=== PATIENT | female | born 1970 | race Caucasian/White ===

== ENCOUNTER 2017-11-10 10:37 | Emergency (ER) | payer MEDICARE ==
[~2017-11-10] VITALS: Ht 154.9 cm; Wt 113.6 kg
[2017-11-10 10:55] VITALS: Ht 154.9 cm; Wt 113.6 kg
[2017-11-10] MEDS ORDERED: ROBAXIN-750750 MG PO (12:45)
[2017-11-10] MEDS ORDERED: COMPAZINE10 MG PO (12:45)
[2017-11-10] MEDS ORDERED: ZPAK PO (12:45)
[2017-11-10 13:30] VITALS: BP 160/68
[2017-12-10 09:08] VITALS: Ht 154.9 cm; Wt 113.6 kg
== END 2017-11-10 13:25 | disposition home or self-care (01) ==
LOC: D.ER 10:37
DX: R11.2 Nausea with vomiting, unspecified (principal); M25.512 Pain in left shoulder; J06.9 Acute upper respiratory infection, unspecified; E11.9 Type 2 diabetes mellitus without complications

== ENCOUNTER 2017-12-09 11:12 | Inpatient (IN) | payer MEDICARE ==
[~2017-12-09] VITALS: Ht 154.9 cm; Wt 150.3 kg
--- NOTE | ~2017-12-09 | HEMODYNAMI ---
PATIENT:YENNI SHERWOOD MEDICAL RECORD: [id number] : 70 LOCATION:[facility] ADMISSION DATE: 12/09/17 Generatedon:12/09/201713:19 Patient name: YENNI SHERWOOD Patient #: [id number] SSN: : 1970 Date of study: 12/09/2017 Page: Of Hemodynamic Procedure Report Patient Data Patient Demographics Procedure consent was obtained First Name: YENNI Gender: Female Last Name: KAELA : 1970 Patient #: [id number] Age: 47 year(s) Race: Unknown Additional ID: [id number] Contact details Address: [address] [address] State: [place] City: [place] Zip code: [address] Admission Admission Data Admission Date: 12/09/2017 Admission Time: 11:12 Procedure Procedure Types Cath Procedure Diagnostic Procedure LHC LHC w/Coronaries Sedation Charges Moderate Sedation up to 15 minutes Procedure Description Procedure Date Procedure Date: 12/09/2017 Procedure Start Time: 12:40 Procedure End Time: 12:59 Procedure Staff Name Function Candido Peña MD Performing Physician Kya Morin RT Monitor Ute Hendrix RT Scrub Mychal Jameson RN Nurse Procedure Data Cath Procedure Fluoroscopy Diagnostic fluoroscopy Total fluoroscopy Time: 2.8 time: 2.8 min min Diagnostic fluoroscopy Total fluoroscopy dose: dose: 1010 mGy 1010 mGy Contrast Material Contrast Material Type Amount (ml) Isovue 300 82 Entry Location Entry Primary Successful Side Size Upsize Upsize Entry Closure Succes sful Closure Location (Fr) 1 (Fr) 2 (Fr) Remarks Device Remarks Femoral Right 5 Fr Exoseal artery Estimated blood loss: 5 ml Diagnostic catheters Device Type Used For End Catheter Placement DIAGNOSTIC AL 1 5Fr Right Coronary catheter ([id number]) Angiography Procedure Complications No complications Procedure Medications Medication Administration Route Dosage 0.9% NaCl I.V. 100 ml/hr Oxygen NC 3 l/min Heparin Flush Bag added to field 2 bags (1000units/500ml NS) Lidocaine 2% added to field 20 Versed I.V. 1 mg Fentanyl I.V. 50 mcg Hydralizine I.V. 20 mg Nitroglycerin IC/IA I.A. 600 mcg Lopressor I.V. 5 mg Fentanyl I.V. 50 mcg Hemodynamics Rest Heart Rate: 63 (bpm) Pressure Samples Time Site Value (mmHg) Purpose Heart Use Rate(bpm) 12:51 LV 230/-9,27 EDP 69 12:52 AO 212/75(128) Pullback 71 12:52 LV 211/20,54 Pullback 71 Gradients Valve Time Site 1 Site 2 Mean SEP/DFP Peak To Heart Use (mmHg) (sec/min) Peak Rate (mmHg) (bpm) Aortic 12:52 LV AO 0 71 211/20,54 212/75(128) Calculations Valve P-P Mean Valve Index Valve Source Name Gradient Area Flow (cm2) Aortic 0 0 Snapshots Pre Cath Intra NCS Post Cath Vital Signs Time Heart Resp SPO2 etCO2 NIBP (mmHg) Rhythm Pain Sedation Rate (ipm) (%) (mmHg) Status Level (bpm) 12:34:40 68 17 97 0 221/98(168) NSR 8 (11) , 10(A) Utterly horrible 12:39:13 65 5 92 0 220/96(168) NSR 7 (11) , 10(A) Very intense 12:43:45 63 30 94 0 225/113(176) NSR 7 (11) , 10(A) Very intense 12:48:20 64 20 96 0 223/100(168) NSR 6 (11) , 10(A) Intense 12:52:54 70 27 96 0 203/95(165) NSR 8 (11) , 10(A) Utterly horrible 12:57:22 79 20 95 0 200/94(142) NSR 7 (11) , 10(A) Very intense 13:05:18 69 21 95 0 195/93(156) NSR 0 (11) , 10(A) No pain 13:10:17 66 13 99 0 Measuring NSR 0 (11) , 10(A) No pain 13:11:41 67 22 96 0 Time NSR 0 (11) , 10(A) Exceeded No pain 13:15:40 0 No Cuff NSR 0 (11) , 10(A) No pain Medications Time Medication Route Dose Verified Delivered Reason Notes Ef fectiveness by by 12:34:08 0.9% NaCl I.V. 100 Mychal Mychal Per ml/hr Gisell Jameson physician RN RN 12:34:19 Oxygen NC 3 Mychal Mychal Per l/min Gisell Jameson physician RN RN 12:34:29 Heparin Flush added 2 Mychal Mychal used for Bag to bags Lorigan Gisell procedure (1000units/500ml field RN RN NS) 12:34:45 Lidocaine 2% added 20ml Mychal Mychal for local to vial Lorigan Lorigan anesthetic field RN RN 12:40:26 Versed I.V. 1 mg Mychal Mychal for sedation Gisell Jameson RN RN 12:40:36 Fentanyl I.V. 50 Mychal Mychal for sedation mcg Gisell Jameson RN RN 12:50:16 Hydralizine I.V. 20 mg Mychal Mychal for Lorigan Lorigan hypertension RN RN 12:54:31 Nitroglycerin I.A. 600 Mychal Candido for IC/IA mcg Gisell Peña MD hypertension RN 12:58:25 Lopressor I.V. 5 mg Mychal Mychal for Lorigan Lorigan hypertension RN RN 13:02:45 Fentanyl I.V. 50 Mychal Mychal for back mcg Feliciaigan Gisell pain RN lens edge grinder machine Log Time Note 12:09:37 Diagnostic Cath Status : Elective 12:10:02 Ute Hendrix RT(R) sent for patient. Start room use. 12:10:03 Time tracking: Regular hours (M-F 7:00 - 5:00) 12:10:07 Plan of Care:Hemodynamics will remain stable., Cardiac rhythm will remain stable., Comfort level will be maintained., Respiratory function will remain adequate., Patient/ family verbilizes understanding of procedure., Procedure tolerated without complication., Recovers from procedure without complications.. 12:32:26 Vital chart was started 12:34:08 0.9% NaCl 100 ml/hr I.V. was administered by Mychal Jameson RN; Per physician; 12:34:19 Oxygen 3 l/min NC was administered by Mychal Jameson RN; Per physician; 12:34:29 Heparin Flush Bag (1000units/500ml NS) 2 bags added to field was administered by Mychal Jameson RN; used for procedure; 12:34:45 Lidocaine 2% 20ml vial added to field was administered by Mychal Jameson RN; for local anesthetic; 12:35:36 Patient received from ED to CCL 2 Alert and oriented. Tansferred to table in Supine position. 12:35:36 Warm blankets applied, and mary alice hugger turned on for patient comfort. 12:35:37 Correct patient and procedure confirmed by team. 12:35:38 Signed procedure consent form obtained from patient. 12:35:39 ECG and BP/O2 sat monitors applied to patient. 12:35:40 Baseline sample Acquired. 12:35:44 Rhythm: sinus rhythm 12:35:45 Full Disclosure recording started 12:35:54 H&P Date Dictated: 12/09/2017 New H&P dictated by physician.. 12:36:58 Pre-procedure instructions explained to patient. 12:36:58 Pre-op teaching completed and patient verbalized understanding. 12:37:01 Family unavailable. 12:37:03 Patient NPO since Breakfast. 12:37:05 Is the patient allergic to Iodine/contrast media? No. 12:37:06 Was the patient premedicated? No 12:37:08 Is patient on blood thinner?No 12:37:10 Patient diabetic? Yes. 12:37:12 If diabetic: On Metformin? Unknown 12:37:15 Previous problem with sedation/anesthesia? No ? 12:37:19 Snore? Yes 12:37:20 Sleep apnea? Yes 12:37:21 Deviated septum? No 12:37:22 Opens mouth fully? Yes 12:37:22 Sticks out tongue? Yes 12:37:25 Airway obstruction? No ? 12:37:28 Dentures? No ? 12:37:30 Pre procedure: right dorsailis pedis pulse 2+ Normal; easily identifiable; not easily obliterated 12:37:32 Pre procedure: left dorsailis pedis pulse 2+ Normal; easily identifiable; not easily obliterated 12:37:36 Patient pain scale 0/10 ?. 12:37:41 IV patent on arrival in left antecubital with [facility]. 12:37:43 Lab results completed and on chart. 12:37:49 Right groin area was prepped with chlora-prep and draped in sterile fashion 12:37:50 Alarms reviewed by R. N. 12:37:50 Sharps counted by scrub and verified by R.N. 12:37:52 Physician arrived 12:37:52 --------ALL STOP TIME OUT------ 12:37:53 Final Timeout: patient, procedure, and site verified with staff and physician. All members of the team are in agreement. 12:37:54 Right groin site verified by team. 12:37:59 Physical assessment completed. ASA score P 2 - A patient with mild systemic disease as per Candido Peña MD. 12:38:03 Sedation plan: IV Moderate Sedation Medication:Versed, Fentanyl 12:38:07 Use device set Radial Dx or PCI 12:38:08 ACIST Syringe (77570) opened to sterile field. 12:38:08 Medline Cath Pack ([id number]) opened to sterile field. 12:38:09 Bag Decanter (2002S) opened to sterile field. 12:38:09 DIAGNOSTIC WIRE .035 260cm J wire (280205) opened to sterile field. 12:38:10 ACIST Hand Control (26707) opened to sterile field. 12:38:10 ACIST Manifold (25923) opened to sterile field. 12:38:21 Tegaderm 4 x 4 (1626W) opened to sterile field. 12:38:56 Procedure started. 12:39:22 SHEATH Prelude 5Fr 0.035 (FOY-7R-97-035) opened to sterile field. 12:40:08 DIAGNOSTIC Multipack 5Fr catheter set ([id number]) opened to sterile field. 12:40:26 Versed 1 mg I.V. was administered by Mychal Jameson RN; for sedation; 12:40:36 Fentanyl 50 mcg I.V. was administered by Mychal Jameson RN; for sedation; 12:40:36 Local anesthetic to right femoral artery with Lidocaine 2% by Candido Peña MD.INITIAL ACCESS ONLY 12:40:44 A 5 Fr sheath was inserted into the Right Femoral artery 12:41:09 5 Fr jl4 guide catheter was inserted over the wire 12:42:12 LCA angiography performed. 12:42:15 Injector settings: Ml/sec: 3, Volume: 6, 12:42:25 Catheter removed. 12:42:37 5 Fr 3drc guide catheter was inserted over the wire 12:43:37 RCA angiography performed. 12:43:40 Injector settings: Ml/sec: 3, Volume: 6, 12:46:18 Bilateral renal angiography performed. 12:47:04 Catheter removed. 12:47:13 A DIAGNOSTIC AL 1 5Fr catheter ([id number]) was advanced over the wire and used for Right Coronary Angiography. 12:48:14 RCA angiography performed. 12:48:16 Injector settings: Ml/sec: 3, Volume: 6, 12:49:49 Catheter removed. 12:50:09 5 Fr pigtail guide catheter was inserted over the wire 12:50:16 Hydralizine 20 mg I.V. was administered by Mychal Jameson RN; for hypertension; 12:51:25 LV hemodynamics recorded. 12:51:27 LV gram done using GREEN 12:51:31 Injector settings: Ml/sec: 12, Volume: 8, 12:52:07 EF : 60 % 12:52:13 Catheter removed. 12:52:52 EXOSEAL 5Fr (EX500) opened to sterile field. 12:54:31 Nitroglycerin IC/IA 600 mcg I.A. was administered by Candido Peña MD; for hypertension; 12:55:51 Sheath removed intact; hemostasis achieved with Exoseal to the Right Femoral artery. 12:56:30 Procedure ended.(Physican Out) 12:57:24 Fluoroscopy time 02.80 minutes. 12:57:44 Fluoroscopy dose: 1010 mGy 12:57:44 Flurop Dose total: 1010 12:57:47 Contrast amount:Isovue 300 82ml. 12:57:48 Sharps counted by scrub and verified by R.N. 12:57:50 Insertion/operative site no bleeding no hematoma. 12:57:52 Post-op/insertion site Right Femoral artery dressed using a 4 x 4 and Tegaderm. 12:57:55 Post right femoral artery:stable 12:57:57 Post Procedure Pulses reassessed and unchanged 12:58:00 Post procedure rhythm: unchanged. 12:58:03 Estimated blood loss: 5 ml 12:58:06 Post procedure instruction explained to patient.Patient verbalizes understanding. 12:58:07 Patient needs reinforcement of post procedure teaching. 12:58:21 Procedure type changed to Cath procedure, Diagnostic procedure, LHC, LHC w/Coronaries, Sedation Charges, Moderate Sedation up to 15 minutes 12:58:22 Procedure and supply charges have been captured, reviewed, submitted and are correct. 12:58:25 Lopressor 5 mg I.V. was administered by Mychal Jameson RN; for hypertension; 12:58:27 Procedure Complication : No complications 12:58:29 Vital chart was stopped 12:58:30 See physician's report for complete and final results. 12:59:34 Report given to Pre/Post Procedure Room. 12:59:37 Patient transfered to Pre/Post Procedure Room with Stretcher. 12:59:41 Procedure ended. 12:59:41 Full Disclosure recording stopped 12:59:52 End room use (Document Last) 13:02:45 Fentanyl 50 mcg I.V. was administered by Mychal Jameson RN; for back pain; 13:04:04 Vital chart was started 13:19:42 Vital chart was stopped Device Usage Item Name Manufacture Quantity Catalog Number Hospital Part Current M inimal Lot# / Charge Number Stock Stock Serial# Code ACIST Syringe Acist 1 76919 185936 865016 410808 2 0 (00252) [employer] Medline Cath Cardinal 1 [id number] 108935 64579 616521 5 Pack Health ([id number]) Bag Decanter Microtek 1 2001S 481073 08686 216033 5 () Medical Inc. DIAGNOSTIC WIRE [place] 1 305575 070048 493067 364156 3 0 .035 260cm J wire (403605) ACIST Hand Acist 1 70408 443480 615816 748709 5 Control (25054) [employer] Inc ACIST Manifold Acist 1 32347 217417 795743 797223 5 (64639) Medical Systems Inc Tegaderm 4 x 4 3M 1 1626W 137120 024767 192976 5 (1626W) SHEATH Prelude Merit 1 QVD-3X-48-035 941787 092531 892795 5 5Fr 0.035 Medical (SFT-2S-22-035) DIAGNOSTIC Cardinal 1 [id number] 629436 34949 415147 3 0 Multipack 5Fr Health catheter set (CG9501) DIAGNOSTIC AL 1 Cardinal 1 [id number] 107771 241848 422022 1 5 5Fr catheter Health (980691S) EXOSEAL 5Fr Cardinal 1 EX500 499355 017526 527142 1 0 (EX500) Health Signature Audit Myrtle Stage Time Signature Unsigned Intra-Procedure 12/09/2017 Kya Morin 1:19:38 PM RT(R) Signatures Monitor : Kya Morin RT Signature : Date : Time : [address] [address]
--- NOTE | ~2017-12-09 | OP ---
PATIENT NAME: YENNI SHERWOOD MEDICAL RECORD: [id number] :70 LOCATION:[facility] ADMISSION DATE:12/09/17 SURGEON: CANDIDO HAMILTON MD DATE OF OPERATION: 12/09/2017 PROCEDURE: Left heart catheterization, LV gram, coronary angiogram. GROCERY DELIVERER: Candido Hamilton MD DESCRIPTION OF PROCEDURE: The patient was brought to cardiac catheterization lab in stable condition. Both groins were sterilely prepped and draped. The patient had a 6-Palauan sheath placed in the right common femoral artery using modified Seldinger technique in a retrograde fashion. We then took catheters and selectively intubated the left coronary artery, the right coronary artery, and the bilateral renal arteries and the left ventricular cavity for complete left heart catheterization. FINDINGS: 1. Left main is a short vessel, widely patent. 2. The LAD is a smallish vessel with a mid 40-50% stenoses, has a mid myocardial bridge. 3. The circumflex is a nondominant vessel with mild diffuse plaquing. 4. The ramus intermediate branch is a small vessel, but widely patent. 5. Right coronary artery comes off in the anterior position, does not appear to be in a binder pinch with the pulmonary artery. There is mild diffuse plaquing in the right coronary artery. 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 6. The bilateral renal arteries were selectively engaged and shown to have no significant stenoses. HEMODYNAMICS: 1. Left ventricular end-diastolic pressure was moderately elevated at 25-30 mmHg. 2. The left ventricular function was normal at 55%. 3. There is no significant mitral regurgitation. No gradient across the aortic valve. IMPRESSION: The patient has mild diffuse coronary artery disease. 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 She does have evidence of congestive left heart failure with elevated left ventricular end-diastolic pressures and had significant elevations of blood pressures upon heart catheterizations into the 200s. We will admit her for hypertensive emergency with chest pain and diuresis and blood pressure control. We will consult her primary providers to help with the diabetic control. TRANSINT:[id number] Voice Confirmation ID: [id number] DOCUMENT ID: [id number] OPERATIVE REPORT [id number] YENNI SHERWOOD,CANDIDO Means MD at 0849 CC: [id number] DICTATION DATE: 12/09/17 1302 BOTTOM PRECIPITATOR OPERATOR: 12/09/17 1330 ADM IN [facility] [address] [id number]
--- NOTE | ~2017-12-09 | CN ---
PATIENT NAME:YENNI VELEZ MEDICAL RECORD: [id number] : 70 LOCATION:[facility] ADMIT DATE: 12/09/17 ACCOUNT: [id number] CONSULTING PHYSICIAN: SADI GUY DO REFERRING PHYSICIAN: ISA HAMILTON MD DATE OF CONSULTATION: 12/10/2017 HISTORY OF PRESENT ILLNESS: Ms. Velez is a 47-year-old white female patient of mine that I follow in [place]. She presents to the Emergency Room with recent chest pain, which is pretty severe. She has risk factors including obesity, hirsutism, diabetes. She was initially admitted by Dr. Hamilton and cardiac catheterization was performed, which reveals no significant coronary artery disease, felt that she probably had some hypertensive urgency that threw her into failure. She was recently hospitalized at [facility] for psych issues. She and her 15-year-old autistic son were found [place] the roadside at around [place] and they were subsequently taken to the Emergency Room. She was subsequently admitted to the psych unit there and autistic son was placed into foster care. Since her release, she has apparently been staying in some motels. Her recently left her and she states he took her CPAP. Essentially she is homeless at this time. PAST MEDICAL HISTORY: Significant for diabetes, bipolar disease, hypertension, anxiety and depression, chronic back pain, hirsutism. ALLERGIES: PENICILLIN. HOME MEDICATIONS: Include pioglitazone 15 mg a day, glipizide 5 mg daily, metformin 1000 b.i.d. and atenolol 50 mg b.i.d. She was recently in a psych unit at [facility]. No psych medicines are mentioned. We will get old records from there. FAMILY HISTORY: Significant for diabetes. SOCIAL HISTORY: The patient is recently from her . Her 15-year-old autistic son is in foster care. She does not smoke. She does not drink. REVIEW OF SYSTEMS: Certain amount of anxiety and depression over her current home situation. She feels bad because she cannot help take care of everybody else. She is complaining of some low back and neck pain with weakness in her lower extremities. She states that she fell about a month ago and hit her head. Her chest pain is better today. She has had some edema. She denies any nausea or vomiting at this time. PHYSICAL EXAMINATION: GENERAL: She is obese. Hirsutism is noted. HEENT: Sclerae nonicteric. NECK: Soft and supple. HEART: Regular. LUNGS: Clear. ABDOMEN: Soft, no rebound, no guarding, no mass. Gait is not assessed. IMPRESSION: 1. Chest pain with normal coronary arteries. 2. Hypertensive urgency with low level CHF, now improved. CONSULT REPORT [id number] YENNI VELEZ 3. Diabetes. 4. Bipolar disease. 5. Recent psych admission at [facility]. PLAN: Appreciate Dr. Hamilton's help. We will get social work coordinator on to try to figure out what we can do for discharge site for her. She would like to go to the [facility] in [place]. Her older sister resides there. She also needs to get a CPAP machine. We will x-ray her neck and back, review her hemoglobin A1c. We will get records from [facility] and double check on her discharge meds regarding any possible psych meds. TRANSINT:[id number] Voice Confirmation ID: [id number] DOCUMENT ID: [id number] SADI GUY DO at 1708 CC: [id number] DICTATION DATE: 12/10/17 1135 METER AND REGULATOR SHOP SUPERVISOR: 12/10/17 1147 ADM IN [address] [place] [id number] [place] [address]
[~2017-12-09 11:12] MED LIST: COMPAZINE10 MG PO; ROBAXIN-750750 MG PO; ZPAK PO
[2017-12-09] MEDS ORDERED: PIOGLITAZONE15 MG PO (11:28)
[2017-12-09] MEDS ORDERED: GLUCOPHAGE1000 MG PO (11:29)
[2017-12-09] MEDS ORDERED: GLUCOTROL 5 MG T5 MG PO (11:29)
[2017-12-09] MEDS ORDERED: TENORMIN50 MG PO (11:30)
[2017-12-09 12:11] LABS: BASOPHILS 0.4 % (0-2); EOSINOPHILS 1.2 % (0-7); HEMATOCRIT 41.4 % (36.0-48.0); HEMOGLOBIN 14.2 g/dL (12-16); IMMATURE GRANULOCYTES 0.3 % (0-5); LYMPHOCYTES 18.7 % (15-50); MCH 31.1 pg (26.0-34.0); MCHC 34.3 g/dL (31.0-37.0); MCV 90.6 fL (80.0-100.0); MONOCYTES 5.3 % (2-11); NEUTROPHILS 74.1 % (40-80); PLATELET COUNT 243 10x3/uL (130-400); RBC 4.57 10x6/uL (4.00-5.40); RDW 13.1 % (11.5-14.5); WBC 7.3 10x3/uL (4.8-10.8)
[2017-12-09 12:34] LABS: ALBUMIN 3.3 g/dL (3.4-5.0); ALKALINE PHOSPHATASE 100 U/L (46-116); ALT (SGPT) 32 U/L (10-68); BILIRUBIN - TOTAL 0.46 mg/dL (0.2-1.3); CALC OSMOLALITY 286 mosm/kg (275-300); CALCIUM 8.9 mg/dL (8.5-10.1); CARBON DIOXIDE 27.2 mmol/L (21.0-32.0); CHLORIDE - SERUM 102 mmol/L (98-107); CREATININE - SERUM 0.9 mg/dL (0.6-1.3); GLUCOSE 223 mg/dL (74-106); POTASSIUM - SERUM 3.4 mmol/L (3.5-5.1); PROTEIN - SERUM 7.3 g/dL (6.4-8.2); SODIUM 140 mmol/L (136-145); UREA NITROGEN 14 mg/dL (7-18); eGFR NON AFRICAN AMERICAN 71 mL/min (90-120)
[2017-12-09 12:46] LABS: CKMB 0.3 U/L (0.0-3.6); CREATINE KINASE 34 UL (21-215)
[2017-12-09 12:47] LABS: TROPONIN-I < 0.017 ng/mL (0.000-0.060)
[2017-12-09 16:29] VITALS: BP 125/77
[2017-12-09 19:00] VITALS: BP 150/62
[2017-12-09 20:00] VITALS: BP 181/72
[2017-12-09 21:00] VITALS: BP 137/73
[2017-12-09 22:00] VITALS: BP 154/73
[2017-12-09 23:00] VITALS: BP 140/66
[2017-12-10] VITALS (15 sets, daily range): BP systolic 100–141; BP diastolic 44–76; Ht 154.9 cm; Wt 150.3 kg
[2017-12-10 02:40] LABS: BASOPHILS 0.5 % (0-2); EOSINOPHILS 1.1 % (0-7); HEMATOCRIT 41.8 % (36.0-48.0); IMMATURE GRANULOCYTES 0.1 % (0-5); MCH 30.8 pg (26.0-34.0); MCHC 33.5 g/dL (31.0-37.0); MCV 91.9 fL (80.0-100.0); MEAN PLATELET VOLUME 11.1 fL (7.4-10.4); MONOCYTES 6.4 % (2-11); NEUTROPHILS 72.9 % (40-80); PLATELET COUNT 246 10x3/uL (130-400); RBC 4.55 10x6/uL (4.00-5.40); RDW 13.5 % (11.5-14.5)
[2017-12-10 02:46] LABS: WBC 9.7 10x3/uL (4.8-10.8)
[2017-12-10 02:51] LABS: ANION GAP 14.8 mmol/L (8-16); CALCIUM 8.5 mg/dL (8.5-10.1); CARBON DIOXIDE 26.8 mmol/L (21.0-32.0); CHOL - HDL RATIO 5.9 ratio (2.3-4.1); CREATININE - SERUM 1.1 mg/dL (0.6-1.3); LDL-HDL RATIO 3.4 ratio (1.5-3.5); POTASSIUM - SERUM 3.6 mmol/L (3.5-5.1)
[2017-12-11] VITALS (11 sets, daily range): BP systolic 97–152; BP diastolic 41–75
[2017-12-12 03:00] VITALS: BP 111/48
[2017-12-12 11:00] VITALS: BP 112/69
[2017-12-12 15:00] VITALS: BP 114/51
[2017-12-12 19:00] VITALS: BP 122/58
[2017-12-12 23:00] VITALS: BP 114/45
[2017-12-13 03:00] VITALS: BP 94/49
[2017-12-13 07:30] VITALS: BP 93/50
[2017-12-13 11:45] VITALS: BP 99/62
[2017-12-13 15:14] VITALS: BP 106/58
[2017-12-13 21:04] VITALS: BP 124/48
[2017-12-14 04:25] VITALS: BP 131/72
[2017-12-14 08:08] VITALS: BP 120/79
[2017-12-14 11:45] VITALS: BP 123/52
[2017-12-14 12:02] LABS: BASOPHILS 0.6 % (0-2); EOSINOPHILS 2.7 % (0-7); HEMATOCRIT 38.5 % (36.0-48.0); HEMOGLOBIN 12.6 g/dL (12-16); IMMATURE GRANULOCYTES 0.1 % (0-5); LYMPHOCYTES 18.7 % (15-50); MCH 30.7 pg (26.0-34.0); MCHC 32.7 g/dL (31.0-37.0); MCV 93.7 fL (80.0-100.0); MEAN PLATELET VOLUME 11.5 fL (7.4-10.4); MONOCYTES 7.7 % (2-11); NEUTROPHILS 70.2 % (40-80); PLATELET COUNT 200 10x3/uL (130-400); RBC 4.11 10x6/uL (4.00-5.40); RDW 13.6 % (11.5-14.5)
[2017-12-14 12:23] LABS: CALCIUM 8.7 mg/dL (8.5-10.1); CREATININE - SERUM 1.1 mg/dL (0.6-1.3)
[2017-12-14 16:18] VITALS: BP 102/72
[2017-12-14 22:10] VITALS: BP 119/39
[2017-12-15 05:33] LABS: BASOPHILS 0.3 % (0-2); EOSINOPHILS 2.9 % (0-7); HEMOGLOBIN 12.2 g/dL (12-16); IMMATURE GRANULOCYTES 0.1 % (0-5); LYMPHOCYTES 32.7 % (15-50); MCH 30.3 pg (26.0-34.0); MCHC 32.1 g/dL (31.0-37.0); MCV 94.5 fL (80.0-100.0); MEAN PLATELET VOLUME 12.1 fL (7.4-10.4); PLATELET COUNT 198 10x3/uL (130-400); RBC 4.02 10x6/uL (4.00-5.40); RDW 13.6 % (11.5-14.5); WBC 6.8 10x3/uL (4.8-10.8)
[2017-12-15 05:46] VITALS: BP 122/45
[2017-12-15 05:51] LABS: ANION GAP 12.4 mmol/L (8-16); CALCIUM 8.6 mg/dL (8.5-10.1); CREATININE - SERUM 1.1 mg/dL (0.6-1.3); POTASSIUM - SERUM 4.4 mmol/L (3.5-5.1)
[2017-12-15 08:51] VITALS: BP 118/56
[2017-12-15 12:45] VITALS: BP 108/69
[2017-12-15 16:48] VITALS: BP 132/55
[2017-12-15 22:57] VITALS: BP 110/56
[2017-12-16 05:37] LABS: BASOPHILS 0.6 % (0-2); EOSINOPHILS 2.5 % (0-7); HEMATOCRIT 37.2 % (36.0-48.0); HEMOGLOBIN 12.1 g/dL (12-16); IMMATURE GRANULOCYTES 0.1 % (0-5); LYMPHOCYTES 30.2 % (15-50); MCH 30.5 pg (26.0-34.0); MCHC 32.5 g/dL (31.0-37.0); MCV 93.7 fL (80.0-100.0); MEAN PLATELET VOLUME 11.9 fL (7.4-10.4); MONOCYTES 7.5 % (2-11); NEUTROPHILS 59.1 % (40-80); PLATELET COUNT 194 10x3/uL (130-400); RBC 3.97 10x6/uL (4.00-5.40); RDW 13.5 % (11.5-14.5); WBC 6.9 10x3/uL (4.8-10.8)
[2017-12-16 05:41] VITALS: BP 102/51
[2017-12-16 06:23] LABS: ANION GAP 10.1 mmol/L (8-16); CALCIUM 8.2 mg/dL (8.5-10.1); CARBON DIOXIDE 30.9 mmol/L (21.0-32.0)
[2017-12-16 10:48] VITALS: BP 125/54
[2017-12-16 13:31] VITALS: BP 132/59
[2017-12-16 16:48] VITALS: BP 142/57
[2017-12-16 20:00] VITALS: BP 131/49
[2017-12-17] VITALS: BP 137/55
[2017-12-17 04:00] VITALS: BP 120/61
[2017-12-17 05:54] LABS: ANION GAP 9.6 mmol/L (8-16); CALCIUM 8.7 mg/dL (8.5-10.1); CARBON DIOXIDE 30.7 mmol/L (21.0-32.0)
[2017-12-17 06:08] LABS: POTASSIUM - SERUM 4.3 mmol/L (3.5-5.1)
[2017-12-17 06:20] LABS: BASOPHILS 0.3 % (0-2); EOSINOPHILS 2.1 % (0-7); HEMATOCRIT 37.6 % (36.0-48.0); HEMOGLOBIN 12.2 g/dL (12-16); IMMATURE GRANULOCYTES 0.3 % (0-5); LYMPHOCYTES 31.7 % (15-50); MCH 30.4 pg (26.0-34.0); MCHC 32.4 g/dL (31.0-37.0); MCV 93.8 fL (80.0-100.0); MEAN PLATELET VOLUME 12.4 fL (7.4-10.4); MONOCYTES 6.9 % (2-11); NEUTROPHILS 58.7 % (40-80); PLATELET COUNT 213 10x3/uL (130-400); RBC 4.01 10x6/uL (4.00-5.40); RDW 13.5 % (11.5-14.5); WBC 7.7 10x3/uL (4.8-10.8)
[2017-12-17 08:48] VITALS: BP 140/55
[2017-12-17 12:46] VITALS: BP 137/77
[2017-12-17 16:49] VITALS: BP 118/89
[2017-12-17 20:00] VITALS: BP 111/71
[2017-12-18 04:00] VITALS: BP 123/79
[2017-12-18 05:50] LABS: BASOPHILS 0.4 % (0-2); EOSINOPHILS 2.2 % (0-7); HEMATOCRIT 37.7 % (36.0-48.0); HEMOGLOBIN 12.1 g/dL (12-16); IMMATURE GRANULOCYTES 0.1 % (0-5); MCH 30.3 pg (26.0-34.0); MCHC 32.1 g/dL (31.0-37.0); MCV 94.3 fL (80.0-100.0); MEAN PLATELET VOLUME 11.9 fL (7.4-10.4); MONOCYTES 7.7 % (2-11); NEUTROPHILS 62.6 % (40-80); PLATELET COUNT 201 10x3/uL (130-400); RDW 13.3 % (11.5-14.5); WBC 7.9 10x3/uL (4.8-10.8)
[2017-12-18 06:32] LABS: ANION GAP 11.9 mmol/L (8-16); CALCIUM 8.8 mg/dL (8.5-10.1); CARBON DIOXIDE 28.9 mmol/L (21.0-32.0); POTASSIUM - SERUM 3.8 mmol/L (3.5-5.1)
[2017-12-18 09:11] VITALS: BP 131/66
[2017-12-18 15:35] VITALS: BP 128/50
[2017-12-18 20:30] VITALS: BP 140/70
[2017-12-19 00:30] VITALS: BP 121/58
[2017-12-19 04:00] VITALS: BP 149/76
[2017-12-19 05:41] LABS: BASOPHILS 0.4 % (0-2); EOSINOPHILS 1.9 % (0-7); HEMATOCRIT 37.3 % (36.0-48.0); HEMOGLOBIN 12.1 g/dL (12-16); IMMATURE GRANULOCYTES 0.1 % (0-5); LYMPHOCYTES 30.6 % (15-50); MCH 30.4 pg (26.0-34.0); MCHC 32.4 g/dL (31.0-37.0); MCV 93.7 fL (80.0-100.0); MONOCYTES 5.6 % (2-11); NEUTROPHILS 61.4 % (40-80); PLATELET COUNT 206 10x3/uL (130-400); RBC 3.98 10x6/uL (4.00-5.40); RDW 13.4 % (11.5-14.5); WBC 8.2 10x3/uL (4.8-10.8)
[2017-12-19 06:11] LABS: ANION GAP 11.8 mmol/L (8-16); CALCIUM 8.7 mg/dL (8.5-10.1); CARBON DIOXIDE 30.1 mmol/L (21.0-32.0); POTASSIUM - SERUM 3.9 mmol/L (3.5-5.1)
[2017-12-19 09:07] VITALS: BP 150/60
[2017-12-19 15:26] VITALS: BP 119/50
[2017-12-19 19:53] VITALS: BP 145/75
[2017-12-20 04:00] VITALS: BP 116/41
[2017-12-20 08:17] VITALS: BP 150/59
[2017-12-20 09:57] LABS: BASOPHILS 0.2 % (0-2); EOSINOPHILS 2.3 % (0-7); HEMATOCRIT 38.8 % (36.0-48.0); HEMOGLOBIN 12.7 g/dL (12-16); IMMATURE GRANULOCYTES 0.1 % (0-5); LYMPHOCYTES 21.9 % (15-50); MCH 30.7 pg (26.0-34.0); MCHC 32.7 g/dL (31.0-37.0); MCV 93.7 fL (80.0-100.0); MEAN PLATELET VOLUME 12.1 fL (7.4-10.4); MONOCYTES 5.3 % (2-11); NEUTROPHILS 70.2 % (40-80); PLATELET COUNT 233 10x3/uL (130-400); RBC 4.14 10x6/uL (4.00-5.40); RDW 13.5 % (11.5-14.5); WBC 8.2 10x3/uL (4.8-10.8)
[2017-12-20 10:21] LABS: ALBUMIN 2.9 g/dL (3.4-5.0); ANION GAP 11.1 mmol/L (8-16); BILIRUBIN - TOTAL 0.47 mg/dL (0.2-1.3); CALCIUM 8.4 mg/dL (8.5-10.1); CARBON DIOXIDE 31.5 mmol/L (21.0-32.0); POTASSIUM - SERUM 3.6 mmol/L (3.5-5.1); PROTEIN - SERUM 6.9 g/dL (6.4-8.2)
[2017-12-20 13:33] VITALS: BP 125/78
[2017-12-20 16:37] VITALS: BP 133/75
[2017-12-20 20:00] VITALS: BP 138/65
[2017-12-21 05:50] LABS: BASOPHILS 0.3 % (0-2); EOSINOPHILS 2.3 % (0-7); HEMATOCRIT 36.3 % (36.0-48.0); HEMOGLOBIN 11.8 g/dL (12-16); IMMATURE GRANULOCYTES 0.3 % (0-5); LYMPHOCYTES 31.7 % (15-50); MCH 30.5 pg (26.0-34.0); MCHC 32.5 g/dL (31.0-37.0); MCV 93.8 fL (80.0-100.0); MONOCYTES 5.7 % (2-11); NEUTROPHILS 59.7 % (40-80); PLATELET COUNT 208 10x3/uL (130-400); RBC 3.87 10x6/uL (4.00-5.40); RDW 13.5 % (11.5-14.5); WBC 7.3 10x3/uL (4.8-10.8)
[2017-12-21 06:00] VITALS: BP 136/77
[2017-12-21 06:16] LABS: ALBUMIN 2.6 g/dL (3.4-5.0); ANION GAP 11.2 mmol/L (8-16); BILIRUBIN - TOTAL 0.42 mg/dL (0.2-1.3); CALCIUM 8.3 mg/dL (8.5-10.1); CARBON DIOXIDE 29.5 mmol/L (21.0-32.0); CREATININE - SERUM 0.9 mg/dL (0.6-1.3); POTASSIUM - SERUM 3.7 mmol/L (3.5-5.1); PROTEIN - SERUM 6.2 g/dL (6.4-8.2)
[2017-12-21 08:28] VITALS: BP 160/73
[2017-12-21 11:30] VITALS: BP 145/99
[2017-12-21 15:30] VITALS: BP 128/48
[2017-12-21 21:00] VITALS: BP 161/53
[2017-12-22 05:30] VITALS: BP 141/56
[2017-12-22 05:57] LABS: BASOPHILS 0.3 % (0-2); EOSINOPHILS 2.2 % (0-7); HEMATOCRIT 36.7 % (36.0-48.0); HEMOGLOBIN 11.8 g/dL (12-16); IMMATURE GRANULOCYTES 0.3 % (0-5); LYMPHOCYTES 29.4 % (15-50); MCH 30.1 pg (26.0-34.0); MCHC 32.2 g/dL (31.0-37.0); MCV 93.6 fL (80.0-100.0); MEAN PLATELET VOLUME 11.6 fL (7.4-10.4); MONOCYTES 7.6 % (2-11); NEUTROPHILS 60.2 % (40-80); PLATELET COUNT 218 10x3/uL (130-400); RBC 3.92 10x6/uL (4.00-5.40); RDW 13.5 % (11.5-14.5); WBC 6.8 10x3/uL (4.8-10.8)
[2017-12-22 06:30] LABS: ALBUMIN 2.6 g/dL (3.4-5.0); BILIRUBIN - TOTAL 0.45 mg/dL (0.2-1.3); CALCIUM 8.6 mg/dL (8.5-10.1); CARBON DIOXIDE 31.9 mmol/L (21.0-32.0); POTASSIUM - SERUM 3.9 mmol/L (3.5-5.1); PROTEIN - SERUM 6.2 g/dL (6.4-8.2)
[2017-12-22 08:18] VITALS: BP 147/54
[2017-12-22 13:26] VITALS: BP 140/50
[2017-12-22 20:09] VITALS: BP 128/44
[2017-12-23 05:00] VITALS: BP 139/57
[2017-12-23 06:32] LABS: BASOPHILS 0.3 % (0-2); HEMATOCRIT 36.2 % (36.0-48.0); HEMOGLOBIN 11.8 g/dL (12-16); IMMATURE GRANULOCYTES 0.1 % (0-5); LYMPHOCYTES 32.3 % (15-50); MCH 30.3 pg (26.0-34.0); MCHC 32.6 g/dL (31.0-37.0); MCV 93.1 fL (80.0-100.0); MEAN PLATELET VOLUME 11.6 fL (7.4-10.4); MONOCYTES 7.1 % (2-11); NEUTROPHILS 58.2 % (40-80); PLATELET COUNT 224 10x3/uL (130-400); RBC 3.89 10x6/uL (4.00-5.40); RDW 13.6 % (11.5-14.5)
[2017-12-23 06:54] LABS: ALBUMIN 2.6 g/dL (3.4-5.0); ANION GAP 9.2 mmol/L (8-16); BILIRUBIN - TOTAL 0.39 mg/dL (0.2-1.3); CALCIUM 8.6 mg/dL (8.5-10.1); CARBON DIOXIDE 29.8 mmol/L (21.0-32.0); CREATININE - SERUM 0.9 mg/dL (0.6-1.3); PROTEIN - SERUM 6.2 g/dL (6.4-8.2)
[2017-12-23 08:09] VITALS: BP 133/49
[2017-12-23 20:00] VITALS: BP 140/71
[2017-12-24 04:00] VITALS: BP 112/52
[2017-12-24 05:23] LABS: BASOPHILS 0.4 % (0-2); HEMATOCRIT 35.4 % (36.0-48.0); HEMOGLOBIN 11.6 g/dL (12-16); IMMATURE GRANULOCYTES 0.3 % (0-5); LYMPHOCYTES 32.3 % (15-50); MCH 30.5 pg (26.0-34.0); MCHC 32.8 g/dL (31.0-37.0); MCV 93.2 fL (80.0-100.0); MEAN PLATELET VOLUME 11.5 fL (7.4-10.4); PLATELET COUNT 244 10x3/uL (130-400); RDW 13.7 % (11.5-14.5)
[2017-12-24 05:51] LABS: ALBUMIN 2.7 g/dL (3.4-5.0); ANION GAP 2.9 mmol/L (8-16); BILIRUBIN - TOTAL 0.36 mg/dL (0.2-1.3); CALCIUM 8.3 mg/dL (8.5-10.1); CARBON DIOXIDE 29.9 mmol/L (21.0-32.0); POTASSIUM - SERUM 3.8 mmol/L (3.5-5.1); PROTEIN - SERUM 6.3 g/dL (6.4-8.2)
[2017-12-24 09:32] VITALS: BP 144/51
[2017-12-24] MEDS ORDERED: LIPITOR10 MG PO (10:22)
[2017-12-24] MEDS ORDERED: LISINOPRIL10 MG PO (10:22)
[2017-12-24] MEDS ORDERED: SEROQUEL25 MG PO (10:22)
[2017-12-24] MEDS ORDERED: LASIX40 MG PO (10:23)
[2017-12-24] MEDS ORDERED: NYSTATIN1 PWD TOPICAL (10:23)
[2017-12-24] MEDS ORDERED: ZOLOFT50 MG PO (10:23)
[2017-12-24] MEDS ORDERED: KLOR-CON 88 MEQ PO (10:23)
[2017-12-24 13:30] VITALS: BP 117/61
== END 2017-12-24 14:50 | DRG 287 ==
LOC: D.CVICU 11:12 → D.CATH 11:12 → D.ER 11:12 → EDSTATUS 12:20 → D.CVICU 15:50 → D.MS 15:51 → D.CATH 15:51 → D.MS 12-13 17:24
PROVIDERS: Family Medicine; Internal Medicine Cardiovascular Disease; Internal Medicine Nephrology
PROC: B2151ZZ Fluoroscopy of Left Heart using Low Osmolar Contrast (ICD-10-PCS; 2017-12-09)
PROC: 4A023N7 Measurement of Cardiac Sampling and Pressure, Left Heart, Percutaneous Approach (ICD-10-PCS; 2017-12-09)
PROC: B2111ZZ Fluoroscopy of Multiple Coronary Arteries using Low Osmolar Contrast (ICD-10-PCS; principal; 2017-12-09 12:10)
DX: I11.0 Hypertensive heart disease with heart failure (principal); I24.9 Acute ischemic heart disease, unspecified; Z68.44 Body mass index [BMI] 60.0-69.9, adult; I50.32 Chronic diastolic (congestive) heart failure; L68.0 Hirsutism; E11.9 Type 2 diabetes mellitus without complications; F31.9 Bipolar disorder, unspecified; F41.8 Other specified anxiety disorders; I16.0 Hypertensive urgency; E66.01 Morbid (severe) obesity due to excess calories; Z59.0 Homelessness

== ENCOUNTER 2018-05-01 11:25 | Emergency (ER) | payer MEDICARE ==
[~2018-05-01] VITALS: Ht 154.9 cm; Wt 147.3 kg
[~2018-05-01 11:25] MED LIST changes: +GLUCOPHAGE1000 MG PO; +GLUCOTROL 5 MG T5 MG PO; +KLOR-CON 88 MEQ PO; +LASIX40 MG PO; +LIPITOR10 MG PO; +LISINOPRIL10 MG PO; +NYSTATIN1 PWD TOPICAL; +PIOGLITAZONE15 MG PO; +SEROQUEL25 MG PO; +TENORMIN50 MG PO; +ZOLOFT50 MG PO
[2018-05-01 11:28] VITALS: Ht 154.9 cm; Wt 147.3 kg
[2018-05-01 12:16] LABS: APPEARANCE CLEAR (CLEAR); BILIRUBIN NEGATIVE (NEGATIVE); COLOR STRAW (YELLOW); GLUCOSE NEGATIVE (NEGATIVE); KETONE NEGATIVE (NEGATIVE); NITRITE NEGATIVE (NEGATIVE); PROTEIN NEGATIVE (NEGATIVE); UROBILINOGEN NORMAL (NORMAL)
[2018-05-01 12:25] LABS: BASOPHILS 0.4 % (0-2); EOSINOPHILS 1.5 % (0-7); HEMATOCRIT 41.7 % (36.0-48.0); HEMOGLOBIN 13.8 g/dL (12-16); IMMATURE GRANULOCYTES 0.1 % (0-5); LYMPHOCYTES 20.4 % (15-50); MCH 29.8 pg (26.0-34.0); MCHC 33.1 g/dL (31.0-37.0); MCV 90.1 fL (80.0-100.0); MEAN PLATELET VOLUME 11.2 fL (7.4-10.4); NEUTROPHILS 72.6 % (40-80); PLATELET COUNT 205 10x3/uL (130-400); RBC 4.63 10x6/uL (4.00-5.40); RDW 12.9 % (11.5-14.5); WBC 7.4 10x3/uL (4.8-10.8)
[2018-05-01 12:45] LABS: ALBUMIN 3.4 g/dL (3.4-5.0); ALKALINE PHOSPHATASE 111 U/L (46-116); ALT (SGPT) 19 U/L (10-68); CALC OSMOLALITY 287 mosm/kg (275-300); CALCIUM 8.6 mg/dL (8.5-10.1); CARBON DIOXIDE 29.5 mmol/L (21.0-32.0); CHLORIDE - SERUM 101 mmol/L (98-107); CREATININE - SERUM 0.8 mg/dL (0.6-1.3); GLUCOSE 202 mg/dL (74-106); POTASSIUM - SERUM 3.6 mmol/L (3.5-5.1); PROTEIN - SERUM 7.5 g/dL (6.4-8.2); SODIUM 141 mmol/L (136-145); UREA NITROGEN 15 mg/dL (7-18); eGFR NON AFRICAN AMERICAN 81 mL/min (90-120)
[2018-05-01 12:57] LABS: CKMB 0.3 U/L (0.0-3.6); CREATINE KINASE 37 UL (21-215); MAGNESIUM - SERUM 1.6 mg/dL (1.8-2.4); PRO BNP 474 pg/mL (0-125)
[2018-05-01 12:58] LABS: TROPONIN-I < 0.017 ng/mL (0.000-0.060)
[2018-05-01 13:54] VITALS: BP 168/84
== END 2018-05-01 13:58 | disposition home or self-care (01) ==
LOC: D.ER 11:25
PROVIDERS: Family Medicine
DX: I10 Essential (primary) hypertension (principal); E66.01 Morbid (severe) obesity due to excess calories; R53.1 Weakness; E11.9 Type 2 diabetes mellitus without complications; I45.10 Unspecified right bundle-branch block

== ENCOUNTER 2018-06-25 12:28 | Inpatient (IN) | payer MEDICARE ==
[2018-06-25] VITALS (7 sets, daily range): BP systolic 131–201; BP diastolic 70–117; BMI 47.3
[2018-06-25 13:49] LABS: BASOPHILS 0.3 % (0-2); EOSINOPHILS 0.1 % (0-7); HEMATOCRIT 42.3 % (36.0-48.0); HEMOGLOBIN 14.3 g/dL (12-16); IMMATURE GRANULOCYTES 0.3 % (0-5); LYMPHOCYTES 10.9 % (15-50); MCH 29.7 pg (26.0-34.0); MCHC 33.8 g/dL (31.0-37.0); MCV 87.9 fL (80.0-100.0); MEAN PLATELET VOLUME 11.2 fL (7.4-10.4); MONOCYTES 5.4 % (2-11); PLATELET COUNT 232 10x3/uL (130-400); RBC 4.81 10x6/uL (4.00-5.40); RDW 13.5 % (11.5-14.5); WBC 9.4 10x3/uL (4.8-10.8)
[2018-06-25 14:00] LABS: APTT 28.5 SECONDS (22.8-39.4); INR 1.07 (0.85-1.17); PROTIME 13.4 SECONDS (11.6-15.0)
[2018-06-25 14:09] LABS: ALBUMIN 3.5 g/dL (3.4-5.0); ALKALINE PHOSPHATASE 118 U/L (46-116); ALT (SGPT) 23 U/L (10-68); BILIRUBIN - TOTAL 0.47 mg/dL (0.2-1.3); CALC OSMOLALITY 282 mosm/kg (275-300); CALCIUM 8.6 mg/dL (8.5-10.1); CARBON DIOXIDE 26.7 mmol/L (21.0-32.0); CHLORIDE - SERUM 100 mmol/L (98-107); CREATININE - SERUM 0.8 mg/dL (0.6-1.3); GLUCOSE 278 mg/dL (74-106); POTASSIUM - SERUM 3.7 mmol/L (3.5-5.1); PROTEIN - SERUM 7.7 g/dL (6.4-8.2); SODIUM 136 mmol/L (136-145); UREA NITROGEN 14 mg/dL (7-18); eGFR NON AFRICAN AMERICAN 81 mL/min (90-120)
[2018-06-25 14:16] LABS: CKMB 0.4 U/L (0.0-3.6); CREATINE KINASE 39 UL (21-215); MAGNESIUM - SERUM 1.7 mg/dL (1.8-2.4); THYROID STIMULATING HORMONE 1.06 uIU/mL (0.36-3.74)
[2018-06-25 14:17] LABS: TROPONIN-I < 0.017 ng/mL (0.000-0.060)
[2018-06-25 14:26] LABS: APPEARANCE CLEAR (CLEAR); COLOR YELLOW (YELLOW); NITRITE NEGATIVE (NEGATIVE)
[2018-06-25 14:27] LABS: BILIRUBIN NEGATIVE (NEGATIVE); GLUCOSE 100 mg/dL (NEGATIVE); KETONE SMALL mg/dL (NEGATIVE); PROTEIN TRACE mg/dL (NEGATIVE); UROBILINOGEN NORMAL (NORMAL)
[2018-06-25 14:36] LABS: UDS - AMPHET NEGATIVE QUAL (NEGATIVE); UDS - BARB NEGATIVE QUAL (NEGATIVE); UDS - BENZO NEGATIVE QUAL (NEGATIVE); UDS - COCAINE NEGATIVE QUAL (NEGATIVE); UDS - OPIATE NEGATIVE QUAL (NEGATIVE); UDS - PCP NEGATIVE QUAL (NEGATIVE); UDS - THC NEGATIVE QUAL (NEGATIVE)
[2018-06-26] VITALS: BP 109/76
[2018-06-26 03:00] VITALS: BP 100/69
[2018-06-26 06:23] LABS: BASOPHILS 0.3 % (0-2); EOSINOPHILS 0.6 % (0-7); HEMATOCRIT 42.2 % (36.0-48.0); HEMOGLOBIN 14.2 g/dL (12-16); IMMATURE GRANULOCYTES 0.3 % (0-5); LYMPHOCYTES 21.5 % (15-50); MCH 29.5 pg (26.0-34.0); MCHC 33.6 g/dL (31.0-37.0); MCV 87.6 fL (80.0-100.0); MEAN PLATELET VOLUME 11.2 fL (7.4-10.4); MONOCYTES 6.1 % (2-11); NEUTROPHILS 71.2 % (40-80); PLATELET COUNT 257 10x3/uL (130-400); RBC 4.82 10x6/uL (4.00-5.40); RDW 13.6 % (11.5-14.5); WBC 11.3 10x3/uL (4.8-10.8)
[2018-06-26 06:41] LABS: CALC OSMOLALITY 277 mosm/kg (275-300); CALCIUM 8.7 mg/dL (8.5-10.1); CARBON DIOXIDE 26.5 mmol/L (21.0-32.0); CHLORIDE - SERUM 99 mmol/L (98-107); CREATININE - SERUM 0.8 mg/dL (0.6-1.3); POTASSIUM - SERUM 3.4 mmol/L (3.5-5.1); SODIUM 137 mmol/L (136-145); UREA NITROGEN 11 mg/dL (7-18); eGFR NON AFRICAN AMERICAN 81 mL/min (90-120)
[2018-06-26 06:44] LABS: GLUCOSE 182 mg/dL (74-106)
[2018-06-26 09:54] VITALS: BP 171/89
[2018-06-26 13:43] VITALS: BP 155/43
[2018-06-26 17:49] VITALS: BP 120/55
[2018-06-26 20:00] VITALS: BP 119/56
[2018-06-27] VITALS: BP 121/63
[2018-06-27 03:00] VITALS: BP 119/51
[2018-06-27 07:50] LABS: BASOPHILS 0.3 % (0-2); EOSINOPHILS 0.9 % (0-7); HEMATOCRIT 40.4 % (36.0-48.0); HEMOGLOBIN 13.4 g/dL (12-16); IMMATURE GRANULOCYTES 0.2 % (0-5); LYMPHOCYTES 25.2 % (15-50); MCH 29.4 pg (26.0-34.0); MCHC 33.2 g/dL (31.0-37.0); MCV 88.6 fL (80.0-100.0); MEAN PLATELET VOLUME 11.2 fL (7.4-10.4); MONOCYTES 7.5 % (2-11); NEUTROPHILS 65.9 % (40-80); PLATELET COUNT 219 10x3/uL (130-400); RBC 4.56 10x6/uL (4.00-5.40); RDW 13.8 % (11.5-14.5); WBC 10.8 10x3/uL (4.8-10.8)
[2018-06-27 08:23] LABS: ALBUMIN 3.2 g/dL (3.4-5.0); ALKALINE PHOSPHATASE 110 U/L (46-116); ALT (SGPT) 20 U/L (10-68); BILIRUBIN - TOTAL 0.57 mg/dL (0.2-1.3); CARBON DIOXIDE 25.3 mmol/L (21.0-32.0); CHLORIDE - SERUM 104 mmol/L (98-107); CREATININE - SERUM 0.7 mg/dL (0.6-1.3); MAGNESIUM - SERUM 1.5 mg/dL (1.8-2.4); PROTEIN - SERUM 6.6 g/dL (6.4-8.2); SODIUM 142 mmol/L (136-145); UREA NITROGEN 11 mg/dL (7-18); eGFR NON AFRICAN AMERICAN > 90 mL/min (90-120)
[2018-06-27 08:36] LABS: CALC OSMOLALITY 282 mosm/kg (275-300); CALCIUM 8.4 mg/dL (8.5-10.1); GLUCOSE 115 mg/dL (74-106)
[2018-06-27 10:07] VITALS: BP 140/122
[2018-06-27 14:37] VITALS: BP 161/58
--- NOTE | 2018-06-27 15:11 | CN ---
PATIENT NAME:YENNI SHERWOOD MEDICAL RECORD: [id number] : 70 LOCATION:D.MS Ramirez2236 ADMIT DATE: 06/27/18 ACCOUNT: [id number] CONSULTING PHYSICIAN: FRANCISCA KELLER MD REFERRING PHYSICIAN: DENNY COMBS MD DATE OF CONSULTATION: 06/26/2018 PSYCHIATRIC CONSULTATION IDENTIFYING DATA: The patient is 47 years old and she is admitted to the hospital for reasons that are unclear. CHIEF COMPLAINT: None. HISTORY OF PRESENT ILLNESS: The patient apparently has been living with a sister who is hospitalized. Now, she has nowhere to go. She is morbidly obese. She has diabetes, hypertension, congestive heart failure, and apparently has been diagnosed as bipolar. On interview, she is cooperative, but it is clear she is far below normal intelligence. She denies any thoughts of harming herself or others. She denies psychotic symptoms. Her nurse tells me she was saying things that were delusional yesterday. She is currently taking an antipsychotic and an antidepressant medicine, and says she gets followup treatment at [facility]. She has no evidence of acute or direct dangerousness. ASSESSMENT: 1. Mental retardation. 2. Bipolar disorder by history. PLAN: At this time, the patient has no acute psychiatric needs. She certainly is in need of supervision and is not capable of making reasonable informed consent decisions about her as person or as state. It seems that her sister being hospitalized is probably a precipitating factor to her needing this assistance. I am not sure what family resources are available. I do not think there is any reason to make significant changes to her psychoactive medication regimen. I certainly do not think she needs to be hospitalized psychiatrically at this point. Again, there is no evidence of dangerousness to herself, the other patients, or staff here. She does need supervision. TRANSINT:[id number] Voice Confirmation ID: [id number] DOCUMENT ID: [id number] FRANCISCA KELLER MD at 1511 CC: [id number] DICTATION DATE: 06/26/18 1114 INSPECTOR PUBLICATIONS: 06/26/18 1822 ADM IN [facility] [address] [place] [address]
--- NOTE | 2018-06-27 15:13 | MORECARE ---
CASE MANAGEMENT DISCHARGE SUMMARY PATIENT: YENNI VELEZ UNIT: [id number] ADM DATE: 06/27/18 AGE: 47 : 70 SEX: F ROOM/BED: D.2236 AUTHOR: MARYDOC PHYSICIAN: REFERRING PHYSICIAN: DENNY COMBS MD DATE OF SERVICE: 06/27/18 Discharge Plan Patient Name: YENNI VELEZ Facility: [facility]:[place] : 1970 Planned Disposition: Nursing Home Facility Anticipated Discharge Date: Discharge Date: Expected LOS: Initial Reviewer: [email or web address] Initial Review Date: 06/27/2018 Generated: 06/27/18 4:13 pm Comments DCP- Discharge Planning Updated by [email or web address]: Darlene Diaz on 06/26/18 3:[address] PATIENT' SISTER WITH RAPID RESPONSE THIS AM. WAS TRANSFERED TO CVICU WITH RESPIRATORY DISTRESS AND DECREASED RESPONSIVENESS. PATIENT SPOKE WITH ER NURSING STAFF REPORTEDLY ABOUT [place] HOANG AND CONDITIONS IN THE HOME. NO DOCUMENTATION. NO APS REPORTING NOTED. LIKELY APS REPORT MAYBE APPROPRIATE. CM TO FOLLOW UP WITH APS IN THE AM PT' SON WAS TAKEN FROM THE HOME THEY MAY HAVE AN OPEN CASE. DOES NOT APPEAR THAT THIS PATIENT COULD SAFELY BE DISCHARGED TO HOME. SHE REPORTEDLY HAD ASSISTANCE FROM HER SISTER AND MR HOANG. BOTH OF WHOM ARE HOSPITALIZED. DR KELLER VISITED THIS AM AND FELT , MR- MENTAL RETARDATION , IS HER ISSUE NOT CHANGE IN MENTAL STATUS. FELT SHE WAS ADMITTED BECAUSE D/C TO HOME WAS NOT AN OPTION DUE TO SELF CARE AND SAFETY CONCERNS. CM TO FOLLOW. DCP- Discharge Planning Updated by [email or web address]: Ana Licea on 06/25/18 5:[address] CM met with patient regarding dc needs/plans. ?Patient has mental handicap? PCP: [facility]. Pharmacy: [facility]. DME: none reported. Emergency contact: Suri Loja, (sister) #[phone]. Austin Hoang #[phone], ("spouse in the eyes of God", but not legally ) and he may be in [facility], "because he got sick before". Living arrangements: Reported per patient, leased [address] [facility] (this reported per patient). Patient states she, her sister and Austin Hoang all live together. States Austin does the cooking and her sister takes care of her. Patient states she receives a SSI check of $1000. 00/month, no food stamps or other assistance. States her name is on the apartment lease. States "[facility] took away my son in February or March and wants to get him back". States her son, Adriana Velez is 15 y/o. Comments "we need to get well and clean and stuff". Patient states she plans to return to her apartment upon discharge. The EMS report for address for the patient slate picker is [address] [place] [id number], phone #[phone]. CM will assist as needed with further dc plans. Ana Licea RN Patient Name: YENNI VELEZ Page [phone] at 1513 All edits/amendments must be made on the electronic document DICTATION DATE: 06/27/181511 WASHHOUSE WORKER: MARK 06/27/181511 RPT#: [id number] DC DATE: STATUS: ADM IN [facility] [address] [place] [address] END OF REPORT
--- NOTE | 2018-06-27 15:22 | MORECARE ---
CASE MANAGEMENT DISCHARGE SUMMARY PATIENT: YENNI VELEZ UNIT: [id number] ADM DATE: 06/27/18 AGE: 47 : 70 SEX: F ROOM/BED: D.2236 AUTHOR: MARYDOC PHYSICIAN: REFERRING PHYSICIAN: DENNY COMBS MD DATE OF SERVICE: 06/27/18 Discharge Plan Patient Name: YENNI VELEZ Facility: [facility]:[place] : 1970 Planned Disposition: Group Home Facility Anticipated Discharge Date: Discharge Date: Expected LOS: Initial Reviewer: [id number] Initial Review Date: 06/27/2018 Generated: 06/27/18 4:21 pm Comments DCP- Discharge Planning Updated by [email or web address]: Darlene Diaz on 06/26/18 3:[address] PATIENT' SISTER WITH RAPID RESPONSE THIS AM. WAS TRANSFERED TO CVICU WITH RESPIRATORY DISTRESS AND DECREASED RESPONSIVENESS. PATIENT SPOKE WITH ER NURSING STAFF REPORTEDLY ABOUT AUSTIN HOANG AND CONDITIONS IN THE HOME. NO DOCUMENTATION. NO APS REPORTING NOTED. LIKELY APS REPORT MAYBE APPROPRIATE. CM TO FOLLOW UP WITH APS IN THE AM PT' SON WAS TAKEN FROM THE HOME THEY MAY HAVE AN OPEN CASE. DOES NOT APPEAR THAT THIS PATIENT COULD SAFELY BE DISCHARGED TO HOME. SHE REPORTEDLY HAD ASSISTANCE FROM HER SISTER AND MR HOANG. BOTH OF WHOM ARE HOSPITALIZED. DR KELLER VISITED THIS AM AND FELT , MR- MENTAL RETARDATION , IS HER ISSUE NOT CHANGE IN MENTAL STATUS. FELT SHE WAS ADMITTED BECAUSE D/C TO HOME WAS NOT AN OPTION DUE TO SELF CARE AND SAFETY CONCERNS. CM TO FOLLOW. DCP- Discharge Planning Updated by [id number]: Ana Licea on 06/25/18 5:[address] CM met with patient regarding dc needs/plans. ?Patient has mental handicap? PCP: [facility]. Pharmacy: [facility]. DME: none reported. Emergency contact: Suri Loja, (sister) #[phone]. Austin Hoang #[phone], ("spouse in the eyes of God", but not legally ) and he may be in [facility], "because he got sick before". Living arrangements: Reported per patient, leased apartment [address] [facility] (this reported per patient). Patient states she, her sister and Austin Hoang all live together. States Austin does the cooking and her sister takes care of her. Patient states she receives a SSI check of $1000. 00/month, no food stamps or other assistance. States her name is on the apartment lease. States "[facility] took away my son in February or March and wants to get him back". States her son, Adriana Velez is 15 y/o. Comments "we need to get well and clean and stuff". Patient states she plans to return to her apartment upon discharge. The EMS report for address for the patient picking machine operator helper is [address] [place] [address], [place] [address], phone #[phone]. CM will assist as needed with further dc plans. Ana Licea RN DCPIA - Discharge Planning Initial Assessment Updated by [email or web address]: Trisha Delatorre on 06/27/18 3:14 pm * Is the patient Alert and Oriented? No * PCP [facility] on [place] (Dr. Cordoba) * Preadmission Environment Home with Family * ADLs Partial Dependent * List name and contact numbers for known caregivers / representatives who currently or will assist patient after discharge: Kianna León - sister - [phone] * Verbal permission to speak to the caregivers and representatives has been obtained from the patient. Yes * Community resources currently utilized None * Additional services required to return to the preadmission environment? Yes * Can the patient safely return to the preadmission environment? No * Has this patient been hospitalized within the prior 30 days at any hospital? No Last DP export: 06/27/18 2:13 pm Patient Name: YENNI VELEZ Page [id number] at 1522 All edits/amendments must be made on the electronic document DICTATION DATE: 06/27/181520 ARSON INVESTIGATOR: MARK 06/27/181520 RPT#: [id number] DC DATE: STATUS: ADM IN [facility] [address] [place] [address] END OF REPORT
[2018-06-27 15:29] VITALS: BMI 47.2
--- NOTE | 2018-06-27 15:33 | MORECARE ---
CASE MANAGEMENT DISCHARGE SUMMARY PATIENT: YENNI VELEZ UNIT: [id number] ADM DATE: 06/27/18 AGE: 47 : 70 SEX: F ROOM/BED: D.2236 AUTHOR: MARYDOC PHYSICIAN: REFERRING PHYSICIAN: DENNY COMBS MD DATE OF SERVICE: 06/27/18 Discharge Plan Patient Name: YENNI VELEZ Facility: [facility]:[place] : 1970 Planned Disposition: Penitentiary Facility Anticipated Discharge Date: Discharge Date: Expected LOS: Initial Reviewer: [email or web address] Initial Review Date: 06/27/2018 Generated: 06/27/18 4:33 pm Comments DCP- Discharge Planning Updated by [email or web address]: Trisha Delatorre on 06/27/18 2:[address] Patient Name: YENNI VELEZ Admission Status: ER Accout number: [id number] Admission Date: 06-27-2018 : 1970 Admission Diagnosis: Attending: LAURYN, Current LOS: 1 Anticipated DC Date: Planned Disposition: Penitentiary Facility Primary Insurance: MEDICARE A & B Discharge Planning Comments: Met with patient to discuss discharge planning. She is unable to answer my questions. She states she lives with her sister in an apartment. She states she doesn't know where her sister is or how she got here. States she has had bad dreams. She later tells her nurse that her sister would like her to go to [facility] for therapy with her. Her sister is currently in the hospital and I met with her to discuss discharge planning. Her sister states she would like them both to go to a rehab facility in [place]. She states she can sign her sister's admission paper work. ABDOUL for [facility] signed. She also signed second choice for [facility]. She will need a CALLY prior to admission and I informed the sister of this. I called [facility] and spoke with Amita and clinical faxed. CM will continue to follow and assist with discharge planning/needs. Cyber Intel Planner: Trisha Delatorre DCP- Discharge Planning Updated by [email or web address]: Darlene Diaz on 06/26/18 3:[address] PATIENT' SISTER WITH RAPID RESPONSE THIS AM. WAS TRANSFERED TO CVICU WITH RESPIRATORY DISTRESS AND DECREASED RESPONSIVENESS. PATIENT SPOKE WITH ER NURSING STAFF REPORTEDLY ABOUT AUSTIN HOANG AND CONDITIONS IN THE HOME. NO DOCUMENTATION. NO APS REPORTING NOTED. LIKELY APS REPORT MAYBE APPROPRIATE. CM TO FOLLOW UP WITH APS IN THE AM PT' SON WAS TAKEN FROM THE HOME THEY MAY HAVE AN OPEN CASE. DOES NOT APPEAR THAT THIS PATIENT COULD SAFELY BE DISCHARGED TO HOME. SHE REPORTEDLY HAD ASSISTANCE FROM HER SISTER AND MR HOANG. BOTH OF WHOM ARE HOSPITALIZED. DR KELLER VISITED THIS AM AND FELT , MR- MENTAL RETARDATION , IS HER ISSUE NOT CHANGE IN MENTAL STATUS. FELT SHE WAS ADMITTED BECAUSE D/C TO HOME WAS NOT AN OPTION DUE TO SELF CARE AND SAFETY CONCERNS. CM TO FOLLOW. DCP- Discharge Planning Updated by [email or web address]: Ana Licea on 06/25/18 5:[address] CM met with patient regarding dc needs/plans. ?Patient has mental handicap? PCP: [facility]. Pharmacy: [facility]. DME: none reported. Emergency contact: Suri Loja, (sister) #[phone]. Austin Hoang #[phone], ("spouse in the eyes of God", but not legally ) and he may be in [facility], "because he got sick before". Living arrangements: Reported per patient, leased apartment [address] on [facility] (this reported per patient). Patient states she, her sister and Austin Hoang all live together. States Austin does the cooking and her sister takes care of her. Patient states she receives a SSI check of $1000. 00/month, no food stamps or other assistance. States her name is on the apartment lease. States "[facility] took away my son in February or March and wants to get him back". States her son, Adriana Velez is 15 y/o. Comments "we need to get well and clean and stuff". Patient states she plans to return to her apartment upon discharge. 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 CM will assist as needed with further dc plans. Ana Licea RN DCPIA - Discharge Planning Initial Assessment Updated by [email or web address]: Trisha Delatorre on 06/27/18 3:14 pm * Is the patient Alert and Oriented? No * PCP [facility] on [place] (Dr. Cordoba) * Preadmission Environment Home with Family * ADLs Partial Dependent * List name and contact numbers for known caregivers / representatives who currently or will assist patient after discharge: Kianna León - sister - [phone] * Verbal permission to speak to the caregivers and representatives has been obtained from the patient. Yes * Community resources currently utilized None * Additional services required to return to the preadmission environment? Yes * Can the patient safely return to the preadmission environment? No * Has this patient been hospitalized within the prior 30 days at any hospital? No Coverage Notice Reviewer: [id number] - Trisha Delatorre Notice Issued Date-Time: 06/27/2018 15:30 Notice Type: Patient Choice Letter Notice Delivered To: Family Member Relationship to Patient: Sister Churn Driller Name: Suri Loja Delivery Method: HAND - Hand Delivered Shanda Days: Prior Verbal Notification: Recipient Understood Notice: Yes Recipient Signature: Yes Med Rec Note Co-signed by Attending: Coverage Notice Comment: ABDOUL for 1. [facility] 2. [facility] Last DP export: 06/27/18 2:21 pm Patient Name: YENNI VELEZ Page [id number] at 1533 All edits/amendments must be made on the electronic document DICTATION DATE: 06/27/181531 SHIPPING AND RECEIVING MATERIAL HANDLER: MARK 06/27/181531 RPT#: [id number] DC DATE: STATUS: ADM IN [facility] [address] [place] [address] END OF REPORT
--- NOTE | 2018-06-27 15:42 | MORECARE ---
CASE MANAGEMENT DISCHARGE SUMMARY PATIENT: YENNI VELEZ UNIT: [id number] ADM DATE: 06/27/18 AGE: 47 : 70 SEX: F ROOM/BED: D.2236 AUTHOR: MARYDOC PHYSICIAN: REFERRING PHYSICIAN: DENNY COMBS MD DATE OF SERVICE: 06/27/18 Discharge Plan Patient Name: YENNI VELEZ Facility: [facility]:[place] : 1970 Planned Disposition: Group Home Facility Anticipated Discharge Date: Discharge Date: Expected LOS: Initial Reviewer: [email or web address] Initial Review Date: 06/27/2018 Generated: 06/27/18 4:42 pm Comments DCP- Discharge Planning Updated by [email or web address]: Trisha Delatorre on 06/27/18 2:[address] Patient Name: YENNI VELEZ Admission Status: ER Accout number: [id number] Admission Date: 06-27-2018 : 1970 Admission Diagnosis: Attending: LAURYN, Current LOS: 1 Anticipated DC Date: Planned Disposition: Group Home Facility Primary Insurance: MEDICARE A & B Discharge Planning Comments: Met with patient to discuss discharge planning. She is unable to answer my questions. She states she lives with her sister in an apartment. She states she doesn't know where her sister is or how she got here. States she has had bad dreams. She later tells her nurse that her sister would like her to go to [facility] for therapy with her. Her sister is currently in the hospital and I met with her to discuss discharge planning. Her sister states she would like them both to go to a rehab facility in [place]. She states she can sign her sister's admission paper work. ABDOUL for [facility] signed. She also signed second choice for [facility]. She will need a CALLY prior to admission and I informed the sister of this. I called [facility] and spoke with Amita and clinical faxed. CM will continue to follow and assist with discharge planning/needs. Public Works Supervisor: Trisha Delatorre DCP- Discharge Planning Updated by [email or web address]: Darlene Diaz on 06/26/18 3:[address] PATIENT' SISTER WITH RAPID RESPONSE THIS AM. WAS TRANSFERED TO CVICU WITH RESPIRATORY DISTRESS AND DECREASED RESPONSIVENESS. PATIENT SPOKE WITH ER NURSING STAFF REPORTEDLY ABOUT AUSTIN HOANG AND CONDITIONS IN THE HOME. NO DOCUMENTATION. NO APS REPORTING NOTED. LIKELY APS REPORT MAYBE APPROPRIATE. CM TO FOLLOW UP WITH APS IN THE AM PT' SON WAS TAKEN FROM THE HOME THEY MAY HAVE AN OPEN CASE. DOES NOT APPEAR THAT THIS PATIENT COULD SAFELY BE DISCHARGED TO HOME. SHE REPORTEDLY HAD ASSISTANCE FROM HER SISTER AND MR HOANG. BOTH OF WHOM ARE HOSPITALIZED. DR KELLER VISITED THIS AM AND FELT , MR- MENTAL RETARDATION , IS HER ISSUE NOT CHANGE IN MENTAL STATUS. FELT SHE WAS ADMITTED BECAUSE D/C TO HOME WAS NOT AN OPTION DUE TO SELF CARE AND SAFETY CONCERNS. CM TO FOLLOW. DCP- Discharge Planning Updated by [email or web address]: Ana Licea on 06/25/18 5:[address] CM met with patient regarding dc needs/plans. ?Patient has mental handicap? PCP: [facility]. Pharmacy: [facility]. DME: none reported. Emergency contact: Suri Loja, (sister) #[phone]. Austin Hoang #[phone], ("spouse in the eyes of God", but not legally ) and he may be in [facility], "because he got sick before". Living arrangements: Reported per patient, leased apartment [address] on [facility] (this reported per patient). Patient states she, her sister and Austin Hoang all live together. States Austin does the cooking and her sister takes care of her. Patient states she receives a SSI check of $1000. 00/month, no food stamps or other assistance. States her name is on the apartment lease. States "[facility] took away my son in February or March and wants to get him back". States her son, Adriana Velez is 15 y/o. Comments "we need to get well and clean and stuff". Patient states she plans to return to her apartment upon discharge. The EMS report for address for the patient warehouse picker is [address] [place] [address], [place] [address], phone #[phone]. CM will assist as needed with further dc plans. Ana Licea RN DCPIA - Discharge Planning Initial Assessment Updated by [email or web address]: Trisha Delatorre on 06/27/18 3:14 pm * Is the patient Alert and Oriented? No * PCP [facility] on [place] (Dr. Cordoba) * Preadmission Environment Home with Family * ADLs Partial Dependent * List name and contact numbers for known caregivers / representatives who currently or will assist patient after discharge: Kianna León - sister - [phone] * Verbal permission to speak to the caregivers and representatives has been obtained from the patient. Yes * Community resources currently utilized None * Additional services required to return to the preadmission environment? Yes * Can the patient safely return to the preadmission environment? No * Has this patient been hospitalized within the prior 30 days at any hospital? No External Providers External Provider: [facility] Next Contact Date: Service Request Date: Service Type: Resolution: Reviewer: Comments: Coverage Notice Reviewer: [email or web address] Mary Trisha Nandini Notice Issued Date-Time: 06/27/2018 15:30 Notice Type: Patient Choice Letter Notice Delivered To: Family Member Relationship to Patient: Sister Booking Agent Name: Suri Loja Delivery Method: HAND - Hand Delivered Shanda Days: Prior Verbal Notification: Recipient Understood Notice: Yes Recipient Signature: Yes Med Rec Note Co-signed by Attending: Coverage Notice Comment: ABDOUL for 1. [facility] 2. [facility] Last DP export: 06/27/18 2:33 pm Patient Name: YENNI VELEZ Page 78855 at 1542 All edits/amendments must be made on the electronic document DICTATION DATE: 06/27/181541 MATERIALS HANDLING COORDINATOR: MARK 06/27/181541 RPT#: [id number] DC DATE: STATUS: ADM IN [facility] [address] [place] [address] END OF REPORT
[2018-06-27 18:12] VITALS: BP 96/55
[2018-06-27 21:57] VITALS: BP 126/56
[2018-06-28 01:45] VITALS: BP 120/50
[2018-06-28 05:19] VITALS: BP 148/64
[2018-06-28 07:21] LABS: BASOPHILS 0.5 % (0-2); EOSINOPHILS 1.5 % (0-7); HEMATOCRIT 40.6 % (36.0-48.0); HEMOGLOBIN 13.2 g/dL (12-16); IMMATURE GRANULOCYTES 0.2 % (0-5); LYMPHOCYTES 23.8 % (15-50); MCH 29.2 pg (26.0-34.0); MCHC 32.5 g/dL (31.0-37.0); MCV 89.8 fL (80.0-100.0); MEAN PLATELET VOLUME 11.3 fL (7.4-10.4); MONOCYTES 6.8 % (2-11); NEUTROPHILS 67.2 % (40-80); PLATELET COUNT 221 10x3/uL (130-400); RBC 4.52 10x6/uL (4.00-5.40); RDW 14.1 % (11.5-14.5); WBC 10.4 10x3/uL (4.8-10.8)
[2018-06-28 08:55] VITALS: BP 134/65
[2018-06-28 09:00] LABS: ALKALINE PHOSPHATASE 103 U/L (46-116); ALT (SGPT) 19 U/L (10-68); BILIRUBIN - TOTAL 0.45 mg/dL (0.2-1.3); CALCIUM 8.3 mg/dL (8.5-10.1); CARBON DIOXIDE 23.1 mmol/L (21.0-32.0); CHLORIDE - SERUM 102 mmol/L (98-107); CREATININE - SERUM 0.6 mg/dL (0.6-1.3); GLUCOSE 109 mg/dL (74-106); MAGNESIUM - SERUM 1.8 mg/dL (1.8-2.4); PROTEIN - SERUM 6.5 g/dL (6.4-8.2); SODIUM 137 mmol/L (136-145); eGFR NON AFRICAN AMERICAN > 90 mL/min (90-120)
[2018-06-28 09:01] LABS: CALC OSMOLALITY 276 mosm/kg (275-300); POTASSIUM - SERUM 4.6 mmol/L (3.5-5.1); UREA NITROGEN 19 mg/dL (7-18)
[2018-06-28 12:24] VITALS: BP 120/54
--- NOTE | 2018-06-28 15:23 | MORECARE ---
CASE MANAGEMENT DISCHARGE SUMMARY PATIENT: YENNI VELEZ UNIT: [id number] ADM DATE: 06/27/18 AGE: 47 : 70 SEX: F ROOM/BED: D.2236 AUTHOR: MARY,DOC PHYSICIAN: REFERRING PHYSICIAN: DENNY COMBS MD DATE OF SERVICE: 06/28/18 Discharge Plan Patient Name: YENNI VELEZ Facility: [facility]:[place] : 1970 Planned Disposition: [facility]ci Facility Anticipated Discharge Date: Discharge Date: Expected LOS: Initial Reviewer: [email or web address] Initial Review Date: 06/27/2018 Generated: 06/28/18 4:23 pm Comments DCP- Discharge Planning Updated by [email or web address]: Trisha Delatorre on 06/28/18 2:[address] Amita with [facility] called and they have declined admission. Patient's sister would like referral to [facility]. yanci Shaffer for [facility] notified and clinical faxed. CM will continue to follow and assist with discharge planning/needs. DCP- Discharge Planning Updated by [email or web address]: Trisha Delatorre on 06/27/18 2:[address] Patient Name: EYNNI VELEZ Admission Status: ER Accout number: [id number] Admission Date: 06-27-2018 : 1970 Admission Diagnosis: Attending: LAURYN, Current LOS: 1 Anticipated DC Date: Planned Disposition: [facility]ci Facility Primary Insurance: MEDICARE A & B Discharge Planning Comments: Met with patient to discuss discharge planning. She is unable to answer my questions. She states she lives with her sister in an apartment. She states she doesn't know where her sister is or how she got here. States she has had bad dreams. She later tells her nurse that her sister would like her to go to [facility] for therapy with her. Her sister is currently in the hospital and I met with her to discuss discharge planning. Her sister states she would like them both to go to a rehab facility in [place]. She states she can sign her sister's admission paper work. ABDOUL for [facility] signed. She also signed second choice for [facility]. She will need a CALLY prior to admission and I informed the sister of this. I called [facility] and spoke with Amita and clinical faxed. CM will continue to follow and assist with discharge planning/needs. Campus Monitor: Trisha Delatorre DCP- Discharge Planning Updated by [email or web address]: Darlene Gregorios on 06/26/18 3:[address] PATIENT' SISTER WITH RAPID RESPONSE THIS AM. WAS TRANSFERED TO CVICU WITH RESPIRATORY DISTRESS AND DECREASED RESPONSIVENESS. PATIENT SPOKE WITH ER NURSING STAFF REPORTEDLY ABOUT AUSTIN HOANG AND CONDITIONS IN THE HOME. NO DOCUMENTATION. NO APS REPORTING NOTED. LIKELY APS REPORT MAYBE APPROPRIATE. CM TO FOLLOW UP WITH APS IN THE AM PT' SON WAS TAKEN FROM THE HOME THEY MAY HAVE AN OPEN CASE. DOES NOT APPEAR THAT THIS PATIENT COULD SAFELY BE DISCHARGED TO HOME. SHE REPORTEDLY HAD ASSISTANCE FROM HER SISTER AND MR HOANG. BOTH OF WHOM ARE HOSPITALIZED. DR KELLER VISITED THIS AM AND FELT , MR- MENTAL RETARDATION , IS HER ISSUE NOT CHANGE IN MENTAL STATUS. FELT SHE WAS ADMITTED BECAUSE D/C TO HOME WAS NOT AN OPTION DUE TO SELF CARE AND SAFETY CONCERNS. CM TO FOLLOW. DCP- Discharge Planning Updated by [email or web address]: Anakristyn Licea on 06/25/18 5:[address] CM met with patient regarding dc needs/plans. ?Patient has mental handicap? PCP: [facility]. Pharmacy: [facility]. DME: none reported. Emergency contact: Suri Loja, (sister) #[phone]. Austin Hoang #[phone], ("spouse in the eyes of God", but not legally ) and he may be in [facility], "because he got sick before". Living arrangements: Reported per patient, leased apartment [address] on [facility] (this reported per patient). Patient states she, her sister and Austin Hoang all live together. States Austin does the cooking and her sister takes care of her. Patient states she receives a SSI check of $1000. 00/month, no food stamps or other assistance. States her name is on the apartment lease. States "[facility] took away my son in February or March and wants to get him back". States her son, Adriana Velez is 15 y/o. Comments "we need to get well and clean and stuff". Patient states she plans to return to her apartment upon discharge. The EMS report for address for the patient order picker is [address] [place] [address], [place] [address], phone #[phone]. CM will assist as needed with further dc plans. Ana Licea RN DCPIA - Discharge Planning Initial Assessment Updated by [email or web address]: Trisha Delatorre on 06/27/18 3:14 pm * Is the patient Alert and Oriented? No * PCP [facility] on [place] (Dr. Cordoba) * Preadmission Environment Home with Family * ADLs Partial Dependent * List name and contact numbers for known caregivers / representatives who currently or will assist patient after discharge: Kianna León - sister - [phone] * Verbal permission to speak to the caregivers and representatives has been obtained from the patient. Yes * Community resources currently utilized None * Additional services required to return to the preadmission environment? Yes * Can the patient safely return to the preadmission environment? No * Has this patient been hospitalized within the prior 30 days at any hospital? No External Providers External Provider: [facility] Next Contact Date: Service Request Date: Service Type: Resolution: Reviewer: Comments: Coverage Notice Reviewer: [id number] - Trisha Delatorre Notice Issued Date-Time: 06/27/2018 15:30 Notice Type: Patient Choice Letter Notice Delivered To: Family Member Relationship to Patient: Sister Vasc Tech Name: Suri Loja Delivery Method: HAND - Hand Delivered Shanda Days: Prior Verbal Notification: Recipient Understood Notice: Yes Recipient Signature: Yes Med Rec Note Co-signed by Attending: Coverage Notice Comment: [facility] for 1Ivania Wilder 2. [facility] DP export: 06/27/18 2:42 pm Patient Name: YENNI VELEZ Page 70312 at 1523 All edits/amendments must be made on the electronic document DICTATION DATE: 06/28/181521 LIGHT OUT EXAMINER: MARK 06/28/181521 RPT#: [id number] DC DATE: STATUS: ADM IN [facility] [address] [place] [address] END OF REPORT
[2018-06-28 16:45] VITALS: BP 114/50
[2018-06-28 21:18] VITALS: BP 119/47
[2018-06-29 05:35] LABS: BASOPHILS 0.5 % (0-2); EOSINOPHILS 1.3 % (0-7); HEMATOCRIT 41.7 % (36.0-48.0); HEMOGLOBIN 13.6 g/dL (12-16); IMMATURE GRANULOCYTES 0.1 % (0-5); LYMPHOCYTES 27.5 % (15-50); MCH 29.4 pg (26.0-34.0); MCHC 32.6 g/dL (31.0-37.0); MCV 90.1 fL (80.0-100.0); MEAN PLATELET VOLUME 11.5 fL (7.4-10.4); MONOCYTES 8.2 % (2-11); NEUTROPHILS 62.4 % (40-80); PLATELET COUNT 225 10x3/uL (130-400); RBC 4.63 10x6/uL (4.00-5.40); RDW 14.2 % (11.5-14.5); WBC 8.7 10x3/uL (4.8-10.8)
[2018-06-29 05:59] VITALS: BP 124/54
[2018-06-29 06:10] LABS: BILIRUBIN - TOTAL 0.3 mg/dL (0.2-1.3); CALCIUM 8.2 mg/dL (8.5-10.1); CARBON DIOXIDE 25.4 mmol/L (21.0-32.0); PROTEIN - SERUM 6.9 g/dL (6.4-8.2)
[2018-06-29 06:35] LABS: ANION GAP 15.5 mmol/L (8-16); MAGNESIUM - SERUM 1.3 mg/dL (1.8-2.4); POTASSIUM - SERUM 3.9 mmol/L (3.5-5.1)
[2018-06-29 09:41] VITALS: BP 122/102
--- NOTE | 2018-06-29 12:35 | MORECARE ---
CASE MANAGEMENT DISCHARGE SUMMARY PATIENT: YENNI VELEZ UNIT: [id number] ADM DATE: 06/27/18 AGE: 47 : 70 SEX: F ROOM/BED: D.2236 AUTHOR: MARYDOC PHYSICIAN: REFERRING PHYSICIAN: DENNY COMBS MD DATE OF SERVICE: 06/29/18 Discharge Plan Patient Name: YENNI VELEZ Facility: [facility]:[place] : 1970 Planned Disposition: Prison Facility Anticipated Discharge Date: Discharge Date: Expected LOS: Initial Reviewer: [email or web address] Initial Review Date: 06/27/2018 Generated: 06/29/18 1:35 pm Comments DCP- Discharge Planning Updated by [email or web address]: Trisha Delatorre on 06/29/18 11:[address] [facility]. Will continue to follow. DCP- Discharge Planning Updated by [id number]: Trisha Delatorre on 06/28/18 2:[address] Amita with [facility] called and they have declined admission. Patient's sister would like referral to [facility]. yanci Shaffer for [facility] notified and clinical faxed. CM will continue to follow and assist with discharge planning/needs. DCP- Discharge Planning Updated by [email or web address]: Trisha Delatorre on 06/27/18 2:[address] Patient Name: YENNI VELEZ Admission Status: ER Accout number: [id number] Admission Date: 06-27-2018 : 1970 Admission Diagnosis: Attending: LAURYN, Current LOS: 1 Anticipated DC Date: Planned Disposition: Prison Facility Primary Insurance: MEDICARE A & B Discharge Planning Comments: Met with patient to discuss discharge planning. She is unable to answer my questions. She states she lives with her sister in an apartment. She states she doesn't know where her sister is or how she got here. States she has had bad dreams. She later tells her nurse that her sister would like her to go to [facility] for therapy with her. Her sister is currently in the hospital and I met with her to discuss discharge planning. Her sister states she would like them both to go to a rehab facility in [place]. She states she can sign her sister's admission paper work. ABDOUL for [facility] signed. She also signed second choice for [facility]. She will need a CALLY prior to admission and I informed the sister of this. I called [facility] and spoke with Amita and clinical faxed. CM will continue to follow and assist with discharge planning/needs. Online Merchandising Coordinator: Trisha Delatorre DCP- Discharge Planning Updated by [email or web address]: Darlene Joe on 06/26/18 3:[address] PATIENT' SISTER WITH RAPID RESPONSE THIS AM. WAS TRANSFERED TO CVICU WITH RESPIRATORY DISTRESS AND DECREASED RESPONSIVENESS. PATIENT SPOKE WITH ER NURSING STAFF REPORTEDLY ABOUT AUSTIN HOANG AND CONDITIONS IN THE HOME. NO DOCUMENTATION. NO APS REPORTING NOTED. LIKELY APS REPORT MAYBE APPROPRIATE. CM TO FOLLOW UP WITH APS IN THE AM PT' SON WAS TAKEN FROM THE HOME THEY MAY HAVE AN OPEN CASE. DOES NOT APPEAR THAT THIS PATIENT COULD SAFELY BE DISCHARGED TO HOME. SHE REPORTEDLY HAD ASSISTANCE FROM HER SISTER AND MR HOANG. BOTH OF WHOM ARE HOSPITALIZED. DR KELLER VISITED THIS AM AND FELT , MR- MENTAL RETARDATION , IS HER ISSUE NOT CHANGE IN MENTAL STATUS. FELT SHE WAS ADMITTED BECAUSE D/C TO HOME WAS NOT AN OPTION DUE TO SELF CARE AND SAFETY CONCERNS. CM TO FOLLOW. DCP- Discharge Planning Updated by [email or web address]: Ana Licea on 06/25/18 5:[address] CM met with patient regarding dc needs/plans. ?Patient has mental handicap? PCP: Gordo Pearl. Pharmacy: [facility]. DME: none reported. Emergency contact: Suri Loja, (sister) #[phone]. Austni Hoang #[phone], ("spouse in the eyes of God", but not legally ) and he may be in [facility], "because he got sick before". Living arrangements: Reported per patient, leased apartment [address] [facility] (this reported per patient). Patient states she, her sister and Austin Hoang all live together. States Austin does the cooking and her sister takes care of her. Patient states she receives a SSI check of $1000. 00/month, no food stamps or other assistance. States her name is on the apartment lease. States "[facility] took away my son in February or March and wants to get him back". States her son, Adriana Velez is 15 y/o. Comments "we need to get well and clean and stuff". Patient states she plans to return to her apartment upon discharge. The EMS report for address for the patient picker machine operator is [address] [place] [address], [place] [address], phone #[phone]. CM will assist as needed with further dc plans. Ana Licea RN DCPIA - Discharge Planning Initial Assessment Updated by [id number]: Trisha Delatorre on 06/27/18 3:14 pm * Is the patient Alert and Oriented? No * PCP [facility] (Dr. [facility]) * Preadmission Environment Home with Family * ADLs Partial Dependent * List name and contact numbers for known caregivers / representatives who currently or will assist patient after discharge: Kianna León - sister - [phone] * Verbal permission to speak to the caregivers and representatives has been obtained from the patient. Yes * Community resources currently utilized None * Additional services required to return to the preadmission environment? Yes * Can the patient safely return to the preadmission environment? No * Has this patient been hospitalized within the prior 30 days at any hospital? No External Providers External Provider: [facility] [place] Contact Date: Service Request Date: Service Type: Resolution: Reviewer: Comments: Coverage Notice Reviewer: [id number] - Trisha Delatorre Notice Issued Date-Time: 06/27/2018 15:30 Notice Type: Patient Choice Letter Notice Delivered To: Family Member Relationship to Patient: Sister Portfolio Analyst Name: Suri Loja Delivery Method: HAND - Hand Delivered Shanda Days: Prior Verbal Notification: Recipient Understood Notice: Yes Recipient Signature: Yes Med Rec Note Co-signed by Attending: Coverage Notice Comment: ABDOUL for 1. [facility] 2. [facility] [place] Last DP export: 06/28/18 2:23 pm Patient Name: YENNI VELEZ Page 00259 at 1235 All edits/amendments must be made on the electronic document DICTATION DATE: 06/29/18 1234 MATZO FORMING MACHINE OPERATOR: MARK 06/29/18 1234 RPT#: [id number] DC DATE: STATUS: ADM IN [facility] [address] [place] [address] END OF REPORT
[2018-06-29 14:47] VITALS: BP 136/88
[2018-06-29 15:09] VITALS: BP 130/107
[2018-06-29 17:54] VITALS: BP 139/72
[2018-06-29 22:22] VITALS: BP 153/68
[2018-06-30 05:16] VITALS: BP 140/78
[2018-06-30 08:26] LABS: BASOPHILS 0.5 % (0-2); EOSINOPHILS 1.3 % (0-7); HEMATOCRIT 40.3 % (36.0-48.0); HEMOGLOBIN 13.4 g/dL (12-16); IMMATURE GRANULOCYTES 0.2 % (0-5); LYMPHOCYTES 25.8 % (15-50); MCH 29.4 pg (26.0-34.0); MCHC 33.3 g/dL (31.0-37.0); MCV 88.4 fL (80.0-100.0); MEAN PLATELET VOLUME 11.1 fL (7.4-10.4); MONOCYTES 8.6 % (2-11); NEUTROPHILS 63.6 % (40-80); PLATELET COUNT 223 10x3/uL (130-400); RBC 4.56 10x6/uL (4.00-5.40); RDW 13.8 % (11.5-14.5); WBC 8.6 10x3/uL (4.8-10.8)
[2018-06-30 08:40] LABS: ALBUMIN 3.1 g/dL (3.4-5.0); ALKALINE PHOSPHATASE 102 U/L (46-116); ALT (SGPT) 20 U/L (10-68); BILIRUBIN - TOTAL 0.65 mg/dL (0.2-1.3); CALC OSMOLALITY 283 mosm/kg (275-300); CALCIUM 8.4 mg/dL (8.5-10.1); CARBON DIOXIDE 25.8 mmol/L (21.0-32.0); CHLORIDE - SERUM 106 mmol/L (98-107); GLUCOSE 115 mg/dL (74-106); MAGNESIUM - SERUM 1.6 mg/dL (1.8-2.4); POTASSIUM - SERUM 3.9 mmol/L (3.5-5.1); SODIUM 141 mmol/L (136-145); UREA NITROGEN 19 mg/dL (7-18)
[2018-06-30 08:41] LABS: CREATININE - SERUM 0.7 mg/dL (0.6-1.3); eGFR NON AFRICAN AMERICAN > 90 mL/min (90-120)
[2018-06-30 09:05] VITALS: BP 95/74
--- NOTE | 2018-06-30 12:11 | MORECARE ---
CASE MANAGEMENT DISCHARGE SUMMARY PATIENT: YENNI VELEZ UNIT: [id number] ADM DATE: 06/27/18 AGE: 47 : 70 SEX: F ROOM/BED: D.2236 AUTHOR: EUSEBIO HERNANDEZ PHYSICIAN: REFERRING PHYSICIAN: DENNY COMBS MD DATE OF SERVICE: 06/30/18 Discharge Plan Patient Name: YENNI VELEZ Facility: [facility]:[place] : 1970 Planned Disposition: [facility] Facility Anticipated Discharge Date: Discharge Date: Expected LOS: Initial Reviewer: [email or web address] Initial Review Date: 06/27/2018 Generated: 06/30/18 1:10 pm Comments DCP- Discharge Planning Updated by [email or web address]: Trisha Nandini on 06/30/18 11:[address] Kianna Ramirez has spoken to patient and her sister and they have elected to go to [facility] in [place] to be closer to her son. Kianna states patient and her sister in agreement to this. CM will continue to follow and assist with discharge planning/needs. DCP- Discharge Planning Updated by [email or web address]: Trisha Nandini on 06/29/18 11:[address] CALLY sent to [facility]. Will continue to follow. DCP- Discharge Planning Updated by [email or web address]: Trisha Nandini on 06/28/18 2:[address] Amita [facility] called and they have declined admission. Patient's sister would like referral to [facility]. yanci Shaffer for [facility] notified and clinical faxed. CM will continue to follow and assist with discharge planning/needs. DCP- Discharge Planning Updated by [email or web address]: Trisha Nandini on 06/27/18 2:[address] Patient Name: YENNI VELEZ Admission Status: ER Accout number: [id number] Admission Date: 06-27-2018 : 1970 Admission Diagnosis: Attending: LAURYN, Current LOS: 1 Anticipated DC Date: Planned Disposition: [facility] Facility Primary Insurance: MEDICARE A & B Discharge Planning Comments: Met with patient to discuss discharge planning. She is unable to answer my questions. She states she lives with her sister in an apartment. She states she doesn't know where her sister is or how she got here. States she has had bad dreams. She later tells her nurse that her sister would like her to go to [facility] for therapy with her. Her sister is currently in the hospital and I met with her to discuss discharge planning. Her sister states she would like them both to go to a rehab facility in [place]. She states she can sign her sister's admission paper work. ABDOUL for [facility] signed. She also signed second choice for [facility]. She will need a CALLY prior to admission and I informed the sister of this. I called [facility] and spoke with Amita and clinical faxed. CM will continue to follow and assist with discharge planning/needs. Service Cleaner: Trisha Delatorre DCP- Discharge Planning Updated by [email or web address]: Darlene Diaz on 06/26/18 3:[address] PATIENT' SISTER WITH RAPID RESPONSE THIS AM. WAS TRANSFERED TO CVICU WITH RESPIRATORY DISTRESS AND DECREASED RESPONSIVENESS. PATIENT SPOKE WITH ER NURSING STAFF REPORTEDLY ABOUT AUSTIN HOANG AND CONDITIONS IN THE HOME. NO DOCUMENTATION. NO APS REPORTING NOTED. LIKELY APS REPORT MAYBE APPROPRIATE. CM TO FOLLOW UP WITH APS IN THE AM PT' SON WAS TAKEN FROM THE HOME THEY MAY HAVE AN OPEN CASE. DOES NOT APPEAR THAT THIS PATIENT COULD SAFELY BE DISCHARGED TO HOME. SHE REPORTEDLY HAD ASSISTANCE FROM HER SISTER AND MR HOANG. BOTH OF WHOM ARE HOSPITALIZED. DR KELLER VISITED THIS AM AND FELT , MR- MENTAL RETARDATION , IS HER ISSUE NOT CHANGE IN MENTAL STATUS. FELT SHE WAS ADMITTED BECAUSE D/C TO HOME WAS NOT AN OPTION DUE TO SELF CARE AND SAFETY CONCERNS. CM TO FOLLOW. DCP- Discharge Planning Updated by [id number]: Ana Licea on 06/25/18 5:[address] CM met with patient regarding dc needs/plans. ?Patient has mental handicap? PCP: Gordo Pearl. Pharmacy: [facility]. DME: none reported. Emergency contact: Suri Loja, (sister) #[phone]. Austin oHang #[phone], ("spouse in the eyes of God", but not legally ) and he may be in [facility], "because he got sick before". Living arrangements: Reported per patient, leased apartment [address] [facility] (this reported per patient). Patient states she, her sister and Austin Hoang all live together. States Austin does the cooking and her sister takes care of her. Patient states she receives a SSI check of $1000. 00/month, no food stamps or other assistance. States her name is on the apartment lease. States "[facility] took away my son in February or March and wants to get him back". States her son, Adriana Velez is 15 y/o. Comments "we need to get well and clean and stuff". Patient states she plans to return to her apartment upon discharge. The EMS report for address for the patient hop picker is [address] [place] [address], [place] [address], phone #[phone]. CM will assist as needed with further dc plans. Ana Licea RN DCPIA - Discharge Planning Initial Assessment Updated by [email or web address]: Trisha Delatorre on 06/27/18 3:14 pm * Is the patient Alert and Oriented? No * PCP [facility] [place] (Dr. Cordoba) * Preadmission Environment Home with Family * ADLs Partial Dependent * List name and contact numbers for known caregivers / representatives who currently or will assist patient after discharge: Kianna León - sister - [phone] * Verbal permission to speak to the caregivers and representatives has been obtained from the patient. Yes * Community resources currently utilized None * Additional services required to return to the preadmission environment? Yes * Can the patient safely return to the preadmission environment? No * Has this patient been hospitalized within the prior 30 days at any hospital? No Coverage Notice Reviewer: [id number] - Trisha Delatorre Notice Issued Date-Time: 06/27/2018 15:30 Notice Type: Patient Choice Letter Notice Delivered To: Family Member Relationship to Patient: Sister Fruit And Vegetable Factory Worker Name: Suri Loja Delivery Method: HAND - Hand Delivered Shanda Days: Prior Verbal Notification: Recipient Understood Notice: Yes Recipient Signature: Yes Med Rec Note Co-signed by Attending: Coverage Notice Comment: ABDOUL for 1. [facility] 2. [facility] [place] Last DP export: 06/29/18 11:35 a Patient Name: YENNI VELEZ Page [id number] at 1211 All edits/amendments must be made on the electronic document DICTATION DATE: 06/30/18 121 METAL DIE FINISHER: MARK 06/30/18 1210 RPT#: [id number] DC DATE: STATUS: ADM IN [facility] [address] [place] [address] END OF REPORT
--- NOTE | 2018-06-30 12:18 | MORECARE ---
CASE MANAGEMENT DISCHARGE SUMMARY PATIENT: YENNI VELEZ UNIT: [id number] ADM DATE: 06/27/18 AGE: 47 : 70 SEX: F ROOM/BED: D.2236 AUTHOR: EUSEBIO HERNANDEZ PHYSICIAN: REFERRING PHYSICIAN: DENNY COMBS MD DATE OF SERVICE: 06/30/18 Discharge Plan Patient Name: YENNI VELEZ Facility: [facility]:[place] : 1970 Planned Disposition: [facility]sp Facility Anticipated Discharge Date: Discharge Date: Expected LOS: Initial Reviewer: [email or web address] Initial Review Date: 06/27/2018 Generated: 06/30/18 1:18 pm Comments DCP- Discharge Planning Updated by [email or web address]: Trisha Nandini on 06/30/18 11:[address] Kianna Ramirez has spoken to patient and her sister and they have elected to go to [facility] in [place] to be closer to her son. Kianna states patient and her sister in agreement to this. CM will continue to follow and assist with discharge planning/needs. DCP- Discharge Planning Updated by [email or web address]: Trisha Nandini on 06/29/18 11:[address] CALLY sent to [facility]. Will continue to follow. DCP- Discharge Planning Updated by [id number]: Trisha Nandini on 06/28/18 2:[address] [facility] called and they have declined admission. Patient's sister would like referral to [facility]. yanci Shaffer for [facility] notified and clinical faxed. CM will continue to follow and assist with discharge planning/needs. DCP- Discharge Planning Updated by [email or web address]: Trisha Nandini on 06/27/18 2:[address] Patient Name: YENNI VELEZ Admission Status: ER Accout number: [id number] Admission Date: 06-27-2018 : 1970 Admission Diagnosis: Attending: LAURYN, Current LOS: 1 Anticipated DC Date: Planned Disposition: [facility]sp Facility Primary Insurance: MEDICARE A & B Discharge Planning Comments: Met with patient to discuss discharge planning. She is unable to answer my questions. She states she lives with her sister in an apartment. She states she doesn't know where her sister is or how she got here. States she has had bad dreams. She later tells her nurse that her sister would like her to go to [facility] for therapy with her. Her sister is currently in the hospital and I met with her to discuss discharge planning. Her sister states she would like them both to go to a rehab facility in [place]. She states she can sign her sister's admission paper work. ABDOUL for [facility] signed. She also signed second choice for [facility]. She will need a CALLY prior to admission and I informed the sister of this. I called [facility] and spoke with Amita and clinical faxed. CM will continue to follow and assist with discharge planning/needs. Senior Environmental Consultant: Trisha Delatorre DCP- Discharge Planning Updated by [email or web address]: Darlene Diaz on 06/26/18 3:[address] PATIENT' SISTER WITH RAPID RESPONSE THIS AM. WAS TRANSFERED TO CVICU WITH RESPIRATORY DISTRESS AND DECREASED RESPONSIVENESS. PATIENT SPOKE WITH ER NURSING STAFF REPORTEDLY ABOUT AUSTIN HOANG AND CONDITIONS IN THE HOME. NO DOCUMENTATION. NO APS REPORTING NOTED. LIKELY APS REPORT MAYBE APPROPRIATE. CM TO FOLLOW UP WITH APS IN THE AM PT' SON WAS TAKEN FROM THE HOME THEY MAY HAVE AN OPEN CASE. DOES NOT APPEAR THAT THIS PATIENT COULD SAFELY BE DISCHARGED TO HOME. SHE REPORTEDLY HAD ASSISTANCE FROM HER SISTER AND MR HOANG. BOTH OF WHOM ARE HOSPITALIZED. DR KELLER VISITED THIS AM AND FELT , MR- MENTAL RETARDATION , IS HER ISSUE NOT CHANGE IN MENTAL STATUS. FELT SHE WAS ADMITTED BECAUSE D/C TO HOME WAS NOT AN OPTION DUE TO SELF CARE AND SAFETY CONCERNS. CM TO FOLLOW. DCP- Discharge Planning Updated by [email or web address]: Ana Licea on 06/25/18 5:[address] CM met with patient regarding dc needs/plans. ?Patient has mental handicap? PCP: Gordo Pearl. Pharmacy: [facility]. DME: none reported. Emergency contact: Suri Loja, (sister) #[phone]. Austin Hoang #[phone], ("spouse in the eyes of God", but not legally ) and he may be in [facility], "because he got sick before". Living arrangements: Reported per patient, leased apartment [address] [facility] (this reported per patient). Patient states she, her sister and Austin Hoang all live together. States Austin does the cooking and her sister takes care of her. Patient states she receives a SSI check of $1000. 00/month, no food stamps or other assistance. States her name is on the apartment lease. States "[facility]HS took away my son in February or March and wants to get him back". States her son, Adriana Velez is 15 y/o. Comments "we need to get well and clean and stuff". Patient states she plans to return to her apartment upon discharge. The EMS report for address for the patient picker and packer is [address] [place] [address], [place] [address], phone #[phone]. CM will assist as needed with further dc plans. Ana Licea RN DCPIA - Discharge Planning Initial Assessment Updated by [email or web address]: Trisha Delatorre on 06/27/18 3:14 pm * Is the patient Alert and Oriented? No * PCP [facility] [place] (Dr. Cordoba) * Preadmission Environment Home with Family * ADLs Partial Dependent * List name and contact numbers for known caregivers / representatives who currently or will assist patient after discharge: Kianna León - sister - [phone] * Verbal permission to speak to the caregivers and representatives has been obtained from the patient. Yes * Community resources currently utilized None * Additional services required to return to the preadmission environment? Yes * Can the patient safely return to the preadmission environment? No * Has this patient been hospitalized within the prior 30 days at any hospital? No Coverage Notice Reviewer: [id number] - Trisha Delatorre Notice Issued Date-Time: 06/27/2018 15:30 Notice Type: Patient Choice Letter Notice Delivered To: Family Member Relationship to Patient: Sister Farm Implement Engine Mechanic Name: Suri Loja Delivery Method: HAND - Hand Delivered Shanda Days: Prior Verbal Notification: Recipient Understood Notice: Yes Recipient Signature: Yes Med Rec Note Co-signed by Attending: Coverage Notice Comment: ABDOUL for 1. [facility] 2. [facility] [place] Last DP export: 06/30/18 11:10 a Patient Name: YENNI VELEZ Page [id number] at 1218 All edits/amendments must be made on the electronic document DICTATION DATE: 06/30/181217 COMMUTATOR UNDERCUTTER: MARK 06/30/181217 RPT#: [id number] DC DATE: STATUS: ADM IN [facility] [address] [place] [address] END OF REPORT
[2018-06-30 17:24] VITALS: BP 117/73
[2018-06-30 20:34] VITALS: BP 116/78
[2018-07-01 05:15] VITALS: BP 124/70
[2018-07-01 06:13] LABS: ALBUMIN 2.8 g/dL (3.4-5.0); ALKALINE PHOSPHATASE 92 U/L (46-116); ALT (SGPT) 15 U/L (10-68); BILIRUBIN - TOTAL 0.26 mg/dL (0.2-1.3); CALC OSMOLALITY 284 mosm/kg (275-300); CALCIUM 8.3 mg/dL (8.5-10.1); CHLORIDE - SERUM 107 mmol/L (98-107); CREATININE - SERUM 0.7 mg/dL (0.6-1.3); GLUCOSE 117 mg/dL (74-106); MAGNESIUM - SERUM 1.6 mg/dL (1.8-2.4); POTASSIUM - SERUM 4.4 mmol/L (3.5-5.1); PROTEIN - SERUM 6.6 g/dL (6.4-8.2); SODIUM 141 mmol/L (136-145); UREA NITROGEN 21 mg/dL (7-18); eGFR NON AFRICAN AMERICAN > 90 mL/min (90-120)
[2018-07-01 07:15] LABS: HEMATOCRIT 39.4 % (36.0-48.0); HEMOGLOBIN 13.4 g/dL (12-16); LYMPHOCYTES 29.2 % (15-50); MCH 30.4 pg (26.0-34.0); MCV 89.3 fL (80.0-100.0); MEAN PLATELET VOLUME 11.5 fL (7.4-10.4); PLATELET COUNT 204 10x3/uL (130-400); RBC 4.41 10x6/uL (4.00-5.40); RDW 13.2 % (11.5-14.5); WBC 7.6 10x3/uL (4.8-10.8)
[2018-07-01 08:31] VITALS: BP 125/53
--- NOTE | 2018-07-01 12:11 | MORECARE ---
CASE MANAGEMENT DISCHARGE SUMMARY PATIENT: YENNI VELEZ UNIT: [id number] ADM DATE: 06/27/18 AGE: 48 : 70 SEX: F ROOM/BED: D.2236 AUTHOR: MARY,DOC PHYSICIAN: REFERRING PHYSICIAN: DENNY COMBS MD DATE OF SERVICE: 07/01/18 Discharge Plan Patient Name: YENNI VELEZ Facility: [facility]:[place] : 1970 Planned Disposition: Long Term Facility Anticipated Discharge Date: Discharge Date: Expected LOS: Initial Reviewer: [email or web address] Initial Review Date: 06/27/2018 Generated: 07/01/18 1:11 pm Comments DCP- Discharge Planning Updated by [id number]: Trisha Delatorre on 07/01/18 11:[address] Wilma Aguilera from [place] in [facility] has interviewed patient and they will accept when she has [place] approval. I called and spoke to Kianna Bush at [facility] and she states she is sending the [place] back now via fax. DCP- Discharge Planning Updated by [email or web address]: Trisha Delatorre on 06/30/18 11:[address] Kianna Ramirez has spoken to patient and her sister and they have elected to go to [facility] in [place] to be closer to her son. Kianna states patient and her sister in agreement to this. CM will continue to follow and assist with discharge planning/needs. DCP- Discharge Planning Updated by [email or web address]: Trisha Delatorre on 06/29/18 11:[address] CALLY sent to [facility]. Will continue to follow. DCP- Discharge Planning Updated by [id number]: Trisha Delatorre on 06/28/18 2:[address] A[facility] Wilder called and they have declined admission. Patient's sister would like referral to [facility]. yanci Shaffer for [facility] notified and clinical faxed. CM will continue to follow and assist with discharge planning/needs. DCP- Discharge Planning Updated by [email or web address]: Trisha Delatorre on 06/27/18 2:[address] Patient Name: YENNI VELEZ Admission Status: ER Accout number: [id number] Admission Date: 06-27-2018 : 1970 Admission Diagnosis: Attending: LAURYN Current LOS: 1 Anticipated DC Date: Planned Disposition: Long Term Facility Primary Insurance: MEDICARE A & B Discharge Planning Comments: Met with patient to discuss discharge planning. She is unable to answer my questions. She states she lives with her sister in an apartment. She states she doesn't know where her sister is or how she got here. States she has had bad dreams. She later tells her nurse that her sister would like her to go to [facility] for therapy with her. Her sister is currently in the hospital and I met with her to discuss discharge planning. Her sister states she would like them both to go to a rehab facility in [place]. She states she can sign her sister's admission paper work. ABDOUL for [facility] signed. She also signed second choice for [facility]. She will need a CALLY prior to admission and I informed the sister of this. I called [facility] and spoke with Amita and clinical faxed. CM will continue to follow and assist with discharge planning/needs. Protein Purification Scientist: Trisha Delatorre DCP- Discharge Planning Updated by [email or web address]: Darlene Diaz on 06/26/18 3:[address] PATIENT' SISTER WITH RAPID RESPONSE THIS AM. WAS TRANSFERED TO CVICU WITH RESPIRATORY DISTRESS AND DECREASED RESPONSIVENESS. PATIENT SPOKE WITH ER NURSING STAFF REPORTEDLY ABOUT AUSTIN HOANG AND CONDITIONS IN THE HOME. NO DOCUMENTATION. NO APS REPORTING NOTED. LIKELY APS REPORT MAYBE APPROPRIATE. CM TO FOLLOW UP WITH APS IN THE AM PT' SON WAS TAKEN FROM THE HOME THEY MAY HAVE AN OPEN CASE. DOES NOT APPEAR THAT THIS PATIENT COULD SAFELY BE DISCHARGED TO HOME. SHE REPORTEDLY HAD ASSISTANCE FROM HER SISTER AND MR HOANG. BOTH OF WHOM ARE HOSPITALIZED. DR KELLER VISITED THIS AM AND FELT , MR- MENTAL RETARDATION , IS HER ISSUE NOT CHANGE IN MENTAL STATUS. FELT SHE WAS ADMITTED BECAUSE D/C TO HOME WAS NOT AN OPTION DUE TO SELF CARE AND SAFETY CONCERNS. CM TO FOLLOW. DCP- Discharge Planning Updated by [id number]: Ana Licea on 06/25/18 5:[address] CM met with patient regarding dc needs/plans. ?Patient has mental handicap? PCP: [facility]. Pharmacy: [facility]. DME: none reported. Emergency contact: Suri Loja, (sister) #[phone]. Austin Hoang #[phone], ("spouse in the eyes of God", but not legally ) and he may be in [facility], "because he got sick before". Living arrangements: Reported per patient, leased apartment [address] [facility] (this reported per patient). Patient states she, her sister and Austin Hoang all live together. States Austin does the cooking and her sister takes care of her. Patient states she receives a SSI check of $1000. 00/month, no food stamps or other assistance. States her name is on the apartment lease. States "[facility] took away my son in February or March and wants to get him back". States her son, Adriana Velez is 15 y/o. Comments "we need to get well and clean and stuff". Patient states she plans to return to her apartment upon discharge. 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 CM will assist as needed with further dc plans. Ana Licea RN DCPIA - Discharge Planning Initial Assessment Updated by [id number]: Trisha Delatorre on 06/27/18 3:14 pm * Is the patient Alert and Oriented? No * [facility]CP [facility] [place] (Dr. Cordoba) * Preadmission Environment Home with Family * ADLs Partial Dependent * List name and contact numbers for known caregivers / representatives who currently or will assist patient after discharge: Kianna León - sister - [phone] * Verbal permission to speak to the caregivers and representatives has been obtained from the patient. Yes * Community resources currently utilized None * Additional services required to return to the preadmission environment? Yes * Can the patient safely return to the preadmission environment? No * Has this patient been hospitalized within the prior 30 days at any hospital? No Coverage Notice Reviewer: [id number] - Trisha Delatorre Notice Issued Date-Time: 06/27/2018 15:30 Notice Type: Patient Choice Letter Notice Delivered To: Family Member Relationship to Patient: Sister Retirement Benefits Specialist Name: Suri Loja Delivery Method: HAND - Hand Delivered Shanda Days: Prior Verbal Notification: Recipient Understood Notice: Yes Recipient Signature: Yes Med Rec Note Co-signed by Attending: Coverage Notice Comment: ABDOUL for 1. [facility] 2. [facility] Last DP export: 06/30/18 11:18 a Patient Name: YENNI VELEZ Page 10329 at 1211 All edits/amendments must be made on the electronic document DICTATION DATE: 07/01/18 121 [employer] SALES REPRESENTATIVE: MARK 07/01/18 1210 RPT#: [id number] DC DATE: STATUS: ADM IN [facility] [address] [place] [address] END OF REPORT
--- NOTE | 2018-07-01 12:57 | MORECARE ---
CASE MANAGEMENT DISCHARGE SUMMARY PATIENT: YENNI VELEZ UNIT: [id number] ADM DATE: 06/27/18 AGE: 48 : 70 SEX: F ROOM/BED: D.2236 AUTHOR: MARY,DOC PHYSICIAN: REFERRING PHYSICIAN: DENNY COMBS MD DATE OF SERVICE: 07/01/18 Discharge Plan Patient Name: YENNI VELEZ Facility: [facility]:[place] : 1970 Planned Disposition: [facility] Facility Anticipated Discharge Date: Discharge Date: Expected LOS: Initial Reviewer: [email or web address] Initial Review Date: 06/27/2018 Generated: 07/01/18 1:57 pm Comments DCP- Discharge Planning Updated by [email or web address]: Trisha Delatorre on 07/01/18 11:[address] Wilma Aguilera from [place] in [facility] has interviewed patient and they will accept when she has [place] approval. I called and spoke to Kianna Bush at [facility] and she states she is sending the [place] back now via fax. DCP- Discharge Planning Updated by [id number]: Trisha Delatorre on 06/30/18 11:[address] Kianna Ramirez has spoken to patient and her sister and they have elected to go to [facility] in [place] to be closer to her son. Kianna states patient and her sister in agreement to this. CM will continue to follow and assist with discharge planning/needs. DCP- Discharge Planning Updated by [email or web address]: Trisha Delatorre on 06/29/18 11:[address] CALLY sent to [facility]. Will continue to follow. DCP- Discharge Planning Updated by [email or web address]: Trisha Delatorre on 06/28/18 2:[address] Amita Wilder called and they have declined admission. Patient's sister would like referral to [facility]. yanci Shaffer for [facility] notified and clinical faxed. CM will continue to follow and assist with discharge planning/needs. DCP- Discharge Planning Updated by [email or web address]: Trisha Delatorre on 06/27/18 2:[address] Patient Name: YENNI VELEZ Admission Status: ER Accout number: [id number] Admission Date: 06-27-2018 : 1970 Admission Diagnosis: Attending: LAURYN Current LOS: 1 Anticipated DC Date: Planned Disposition: [facility] Facility Primary Insurance: MEDICARE A & B Discharge Planning Comments: Met with patient to discuss discharge planning. She is unable to answer my questions. She states she lives with her sister in an apartment. She states she doesn't know where her sister is or how she got here. States she has had bad dreams. She later tells her nurse that her sister would like her to go to [facility] for therapy with her. Her sister is currently in the hospital and I met with her to discuss discharge planning. Her sister states she would like them both to go to a rehab facility in [place]. She states she can sign her sister's admission paper work. ABDOUL for [facility] signed. She also signed second choice for [facility]. She will need a CALLY prior to admission and I informed the sister of this. I called [facility] and spoke with Amita and clinical faxed. CM will continue to follow and assist with discharge planning/needs. Lean Consultant: Trisha Delatorre DCP- Discharge Planning Updated by [email or web address]: Darlene Diaz on 06/26/18 3:[address] PATIENT' SISTER WITH RAPID RESPONSE THIS AM. WAS TRANSFERED TO CVICU WITH RESPIRATORY DISTRESS AND DECREASED RESPONSIVENESS. PATIENT SPOKE WITH ER NURSING STAFF REPORTEDLY ABOUT AUSTIN HOANG AND CONDITIONS IN THE HOME. NO DOCUMENTATION. NO APS REPORTING NOTED. LIKELY APS REPORT MAYBE APPROPRIATE. CM TO FOLLOW UP WITH APS IN THE AM PT' SON WAS TAKEN FROM THE HOME THEY MAY HAVE AN OPEN CASE. DOES NOT APPEAR THAT THIS PATIENT COULD SAFELY BE DISCHARGED TO HOME. SHE REPORTEDLY HAD ASSISTANCE FROM HER SISTER AND MR HOANG. BOTH OF WHOM ARE HOSPITALIZED. DR KELLER VISITED THIS AM AND FELT , MR- MENTAL RETARDATION , IS HER ISSUE NOT CHANGE IN MENTAL STATUS. FELT SHE WAS ADMITTED BECAUSE D/C TO HOME WAS NOT AN OPTION DUE TO SELF CARE AND SAFETY CONCERNS. CM TO FOLLOW. DCP- Discharge Planning Updated by [id number]: Ana Licea on 06/25/18 5:[address] CM met with patient regarding dc needs/plans. ?Patient has mental handicap? PCP: [facility]. Pharmacy: [facility]. DME: none reported. Emergency contact: Suri Loja, (sister) #[phone]. Austin Hoang #[phone], ("spouse in the eyes of God", but not legally ) and he may be in [facility], "because he got sick before". Living arrangements: Reported per patient, leased apartment [address] on [facility] (this reported per patient). Patient states she, her sister and Austin Hoang all live together. States Austin does the cooking and her sister takes care of her. Patient states she receives a SSI check of $1000. 00/month, no food stamps or other assistance. States her name is on the apartment lease. States "[facility] took away my son in February or March and wants to get him back". States her son, Adriana Velez is 15 y/o. Comments "we need to get well and clean and stuff". Patient states she plans to return to her apartment upon discharge. 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 CM will assist as needed with further dc plans. Ana Licea RN DCPIA - Discharge Planning Initial Assessment Updated by [id number]: Trisha Delatorre on 06/27/18 3:14 pm * Is the patient Alert and Oriented? No * PCP [facility] on [place] (Dr. Cordoba) * Preadmission Environment Home with Family * ADLs Partial Dependent * List name and contact numbers for known caregivers / representatives who currently or will assist patient after discharge: Kianna León - sister - [phone] * Verbal permission to speak to the caregivers and representatives has been obtained from the patient. Yes * Community resources currently utilized None * Additional services required to return to the preadmission environment? Yes * Can the patient safely return to the preadmission environment? No * Has this patient been hospitalized within the prior 30 days at any hospital? No External Providers External Provider: OTHER-OTHER Next Contact Date: Service Request Date: Service Type: Resolution: Reviewer: Comments: Coverage Notice Reviewer: [id number] - Trisha Delatorre Notice Issued Date-Time: 06/27/2018 15:30 Notice Type: Patient Choice Letter Notice Delivered To: Family Member Relationship to Patient: Sister Warper Creeler Name: Suri Loja Delivery Method: HAND - Hand Delivered Shanda Days: Prior Verbal Notification: Recipient Understood Notice: Yes Recipient Signature: Yes Med Rec Note Co-signed by Attending: Coverage Notice Comment: ABDOUL for 1. [place] 2. [facility] Last DP export: 07/01/18 11:11 a Patient Name: YENNI VELEZ Page [id number] at 1257 All edits/amendments must be made on the electronic document DICTATION DATE: 07/01/18 1256 STORY ANALYST: MARK 07/01/18 1256 RPT#: [id number] DC DATE: STATUS: ADM IN [facility] [address] [place] [address] END OF REPORT
[2018-07-01 13:02] VITALS: BP 108/76
--- NOTE | 2018-07-01 13:12 | MORECARE ---
CASE MANAGEMENT DISCHARGE SUMMARY PATIENT: DARIANA VELEZ UNIT: [id number] ADM DATE: 06/27/18 AGE: 48 : 70 SEX: F ROOM/BED: D.2236 AUTHOR: MARY,DOC PHYSICIAN: REFERRING PHYSICIAN: DENNY COMBS MD DATE OF SERVICE: 07/01/18 Discharge Plan Patient Name: DARIANA VELEZ Facility: [facility]:[place] : 1970 Planned Disposition: Correction Facility Anticipated Discharge Date: Discharge Date: Expected LOS: Initial Reviewer: [email or web address] Initial Review Date: 06/27/2018 Generated: 07/01/18 2:12 pm Comments DCP- Discharge Planning Updated by [email or web address]: Trisha Delatorre on 07/01/18 12:[address] CALLY approval received. I faxed approval to Wilma and also called her. Wilma states they do not want to take Dariana until her sister is discharged. Her sisters possible discharge will be on Wednesday. They will both have to go via ambulance because [facility] is unable to take the van out of town. CM will continue to follow and assist with discharge planning/needs. DCP- Discharge Planning Updated by [email or web address]: Trisha Delatorre on 07/01/18 11:[address] Wilma Aguilera from [facility] in [facility] has interviewed patient and they will accept when she has [place] approval. I called and spoke to Kianna Bush at [facility] and she states she is sending the [place] back now via fax. DCP- Discharge Planning Updated by [email or web address]: Trisha Delatorre on 06/30/18 11:[address] Kianna Ramirez has spoken to patient and her sister and they have elected to go to [facility] in [place] to be closer to her son. Kianna states patient and her sister in agreement to this. CM will continue to follow and assist with discharge planning/needs. DCP- Discharge Planning Updated by [email or web address]: Trisha Delatorre on 06/29/18 11:[address] [place] [facility] Will continue to follow. DCP- Discharge Planning Updated by [email or web address]: Trisha Delatorre on 06/28/18 2:[address] Amita with [facility] called and they have declined admission. Patient's sister would like referral to [facility]. yanci Shaffer for [facility] notified and clinical faxed. CM will continue to follow and assist with discharge planning/needs. DCP- Discharge Planning Updated by [email or web address]: Trisha Delatorre on 06/27/18 2:[address] Patient Name: DARIANA VELEZ Admission Status: ER Accout number: [id number] Admission Date: 06-27-2018 : 1970 Admission Diagnosis: Attending: LAURYN, Current LOS: 1 Anticipated DC Date: Planned Disposition: [facility] Facility Primary Insurance: MEDICARE A & B Discharge Planning Comments: Met with patient to discuss discharge planning. She is unable to answer my questions. She states she lives with her sister in an apartment. She states she doesn't know where her sister is or how she got here. States she has had bad dreams. She later tells her nurse that her sister would like her to go to [place] for therapy with her. Her sister is currently in the hospital and I met with her to discuss discharge planning. Her sister states she would like them both to go to a rehab facility in [place]. She states she can sign her sister's admission paper work. ABDOUL for [place] signed. She also signed second choice for [facility]. She will need a CALLY prior to admission and I informed the sister of this. I called [facility] and spoke with Amita and clinical faxed. CM will continue to follow and assist with discharge planning/needs. Electric Operator: Trisha Delatorre DCP- Discharge Planning Updated by [email or web address]: Darlene Diaz on 06/26/18 3:[address] PATIENT' SISTER WITH RAPID RESPONSE THIS AM. WAS TRANSFERED TO CVICU WITH RESPIRATORY DISTRESS AND DECREASED RESPONSIVENESS. PATIENT SPOKE WITH ER NURSING STAFF REPORTEDLY ABOUT AUSTIN HOANG AND CONDITIONS IN THE HOME. NO DOCUMENTATION. NO APS REPORTING NOTED. LIKELY APS REPORT MAYBE APPROPRIATE. CM TO FOLLOW UP WITH APS IN THE AM PT' SON WAS TAKEN FROM THE HOME THEY MAY HAVE AN OPEN CASE. DOES NOT APPEAR THAT THIS PATIENT COULD SAFELY BE DISCHARGED TO HOME. SHE REPORTEDLY HAD ASSISTANCE FROM HER SISTER AND MR HOANG. BOTH OF WHOM ARE HOSPITALIZED. DR KELLER VISITED THIS AM AND FELT , MR- MENTAL RETARDATION , IS HER ISSUE NOT CHANGE IN MENTAL STATUS. FELT SHE WAS ADMITTED BECAUSE D/C TO HOME WAS NOT AN OPTION DUE TO SELF CARE AND SAFETY CONCERNS. CM TO FOLLOW. DCP- Discharge Planning Updated by [id number]: Ana Licea on 06/25/18 5:[address] CM met with patient regarding dc needs/plans. ?Patient has mental handicap? PCP: [facility]. Pharmacy: [facility]. DME: none reported. Emergency contact: Suri Loja, (sister) #[phone]. Austin Hoang #[phone], ("spouse in the eyes of God", but not legally ) and he may be in [facility], "because he got sick before". Living arrangements: Reported per patient, leased apartment [address] on [facility] (this reported per patient). Patient states she, her sister and Austin Hoang all live together. States Austin does the cooking and her sister takes care of her. Patient states she receives a SSI check of $1000. 00/month, no food stamps or other assistance. States her name is on the apartment lease. States "[facility]HS took away my son in February or March and wants to get him back". States her son, Adriana Velez is 15 y/o. Comments "we need to get well and clean and stuff". Patient states she plans to return to her apartment upon discharge. The EMS report for address for the patient pick up attendant is [address] [place] [address], [place] [address], phone #[phone]. CM will assist as needed with further dc plans. Ana Licea RN DCPIA - Discharge Planning Initial Assessment Updated by [id number]: Trisha Delatorre on 06/27/18 3:14 pm * Is the patient Alert and Oriented? No * PCP [facility] on [place] (Dr. Cordoba) * Preadmission Environment Home with Family * ADLs Partial Dependent * List name and contact numbers for known caregivers / representatives who currently or will assist patient after discharge: Kianna León - sister - [phone] * Verbal permission to speak to the caregivers and representatives has been obtained from the patient. Yes * Community resources currently utilized None * Additional services required to return to the preadmission environment? Yes * Can the patient safely return to the preadmission environment? No * Has this patient been hospitalized within the prior 30 days at any hospital? No Coverage Notice Reviewer: [id number] Mary Delatorre Notice Issued Date-Time: 06/27/2018 15:30 Notice Type: Patient Choice Letter Notice Delivered To: Family Member Relationship to Patient: Sister Security Compliance Specialist Name: Suri Loja Delivery Method: HAND - Hand Delivered Shanda Days: Prior Verbal Notification: Recipient Understood Notice: Yes Recipient Signature: Yes Med Rec Note Co-signed by Attending: Coverage Notice Comment: ABDOUL for 1. [place] 2. [facility] Last DP export: 07/01/18 11:57 a Patient Name: DARIANA VELEZ Page [id number] at 1312 All edits/amendments must be made on the electronic document DICTATION DATE: 07/01/18 1311 RESOURCE SPECIALIST TEACHER: MARK 07/01/18 1311 RPT#: [id number] DC DATE: STATUS: ADM IN [facility] [address] [place] [address] END OF REPORT
[2018-07-01 16:44] VITALS: BP 111/56
[2018-07-01 20:01] VITALS: BP 117/42
[2018-07-02 01:25] VITALS: BP 120/80
[2018-07-02 04:57] VITALS: BP 180/82
[2018-07-02 06:03] LABS: CHLORIDE - SERUM 105 mmol/L (98-107); SODIUM 140 mmol/L (136-145); UREA NITROGEN 18 mg/dL (7-18)
[2018-07-02 06:04] LABS: CARBON DIOXIDE 28.9 mmol/L (21.0-32.0)
[2018-07-02 06:17] LABS: CALC OSMOLALITY 280 mosm/kg (275-300); CALCIUM 8.1 mg/dL (8.5-10.1); CREATININE - SERUM 0.8 mg/dL (0.6-1.3); GLUCOSE 105 mg/dL (74-106); MAGNESIUM - SERUM 1.6 mg/dL (1.8-2.4); eGFR NON AFRICAN AMERICAN 81 mL/min (90-120)
[2018-07-02 09:06] VITALS: BP 109/77
[2018-07-02 13:53] VITALS: BP 113/50
[2018-07-02 16:24] VITALS: BP 96/54
[2018-07-02 20:25] VITALS: BP 117/69
[2018-07-03 00:25] VITALS: BP 120/80
[2018-07-03 03:41] VITALS: BP 124/75
[2018-07-03 05:33] LABS: ANION GAP 11.3 mmol/L (8-16); CALCIUM 8.1 mg/dL (8.5-10.1); CREATININE - SERUM 0.9 mg/dL (0.6-1.3); MAGNESIUM - SERUM 1.8 mg/dL (1.8-2.4); POTASSIUM - SERUM 4.3 mmol/L (3.5-5.1)
[2018-07-03 09:08] VITALS: BP 151/70
[2018-07-03 13:36] VITALS: BP 139/60
[2018-07-03 18:14] VITALS: BP 105/87
[2018-07-03 19:50] VITALS: BP 136/82
[2018-07-04 04:28] VITALS: BP 136/46
[2018-07-04 06:29] LABS: CALC OSMOLALITY 284 mosm/kg (275-300); CALCIUM 8.2 mg/dL (8.5-10.1); CARBON DIOXIDE 29.1 mmol/L (21.0-32.0); CHLORIDE - SERUM 106 mmol/L (98-107); CREATININE - SERUM 0.7 mg/dL (0.6-1.3); GLUCOSE 103 mg/dL (74-106); MAGNESIUM - SERUM 1.5 mg/dL (1.8-2.4); POTASSIUM - SERUM 4.3 mmol/L (3.5-5.1); SODIUM 142 mmol/L (136-145); UREA NITROGEN 17 mg/dL (7-18); eGFR NON AFRICAN AMERICAN > 90 mL/min (90-120)
[2018-07-04 06:32] LABS: BASOPHILS 0.4 % (0-2); HEMATOCRIT 38.3 % (36.0-48.0); HEMOGLOBIN 12.5 g/dL (12-16); IMMATURE GRANULOCYTES 0.1 % (0-5); LYMPHOCYTES 39.3 % (15-50); MCH 29.3 pg (26.0-34.0); MCHC 32.6 g/dL (31.0-37.0); MCV 89.7 fL (80.0-100.0); MEAN PLATELET VOLUME 11.5 fL (7.4-10.4); MONOCYTES 7.3 % (2-11); NEUTROPHILS 50.9 % (40-80); PLATELET COUNT 197 10x3/uL (130-400); RBC 4.27 10x6/uL (4.00-5.40); RDW 13.5 % (11.5-14.5)
[2018-07-04 09:01] VITALS: BP 128/71
[2018-07-04 12:57] VITALS: BP 149/119
--- NOTE | 2018-07-04 14:28 | MORECARE ---
CASE MANAGEMENT DISCHARGE SUMMARY PATIENT: DARIANA SHERWOOD UNIT: [id number] ADM DATE: 06/27/18 AGE: 48 : 70 SEX: F ROOM/BED: D.2236 AUTHOR: MARY,DOC PHYSICIAN: REFERRING PHYSICIAN: DENNY COMBS MD DATE OF SERVICE: 07/04/18 Discharge Plan Patient Name: DARIANA SHERWOOD Facility: [facility]:[place] : 1970 Planned Disposition: Intermediate Facility Anticipated Discharge Date: Discharge Date: Expected LOS: Initial Reviewer: [email or web address] Initial Review Date: 06/27/2018 Generated: 07/04/18 3:27 pm Comments DCP- Discharge Planning Updated by [email or web address]: Trisha Nandini on 07/04/18 1:[address] Received confirmation from RICCARDO Babin for patient's sister, that her sister is being discharged today. I notifed Kianna Wallace and discharge orders/MAR faxed to her. She will need nonemergent transportation set up. cardiology coordinator informed. CM will continue to follow and assist with discharge planning/needs. DCP- Discharge Planning Updated by [email or web address]: Trisha Nandini on 07/01/18 12:[address] [facility] approval received. I faxed approval to [facility] and also called her. Wilma states they do not want to take Dariana until her sister is discharged. Her sisters possible discharge will be on Wednesday. They will both have to go via ambulance because [facility] is unable to take the van out of town. CM will continue to follow and assist with discharge planning/needs. DCP- Discharge Planning Updated by [email or web address]: Trisha Delatorre on 07/01/18 11:[address] Wilma Aguilera from [place] in [facility] has interviewed patient and they will accept when she has [place] approval. I called and spoke to Kianna Bush at [facility] and she states she is sending the [place] back now via fax. DCP- Discharge Planning Updated by [email or web address]: Trisha Delatorre on 06/30/18 11:[address] Kianna Ramirez has spoken to patient and her sister and they have elected to go to [facility] in [place] to be closer to her son. Kianna states patient and her sister in agreement to this. CM will continue to follow and assist with discharge planning/needs. DCP- Discharge Planning Updated by [email or web address]: Trisha Delatorre on 06/29/18 11:[address] CALLY sent to [facility]. Will continue to follow. DCP- Discharge Planning Updated by [email or web address]: Trisha Delatorre on 06/28/18 2:[address] Amita with [facility] called and they have declined admission. Patient's sister would like referral to [facility]. yanci Shaffer for [facility] notified and clinical faxed. CM will continue to follow and assist with discharge planning/needs. DCP- Discharge Planning Updated by [email or web address]: Trisha Delatorre on 06/27/18 2:[address] Patient Name: DARIANA SHERWOOD Admission Status: ER Accout number: [id number] Admission Date: 06-27-2018 : 1970 Admission Diagnosis: Attending: LAURYN, Current LOS: 1 Anticipated DC Date: Planned Disposition: Intermediate Facility Primary Insurance: MEDICARE A & B Discharge Planning Comments: Met with patient to discuss discharge planning. She is unable to answer my questions. She states she lives with her sister in an apartment. She states she doesn't know where her sister is or how she got here. States she has had bad dreams. She later tells her nurse that her sister would like her to go to [place] for therapy with her. Her sister is currently in the hospital and I met with her to discuss discharge planning. Her sister states she would like them both to go to a rehab facility in [place]. She states she can sign her sister's admission paper work. ABDOUL for [facility] signed. She also signed second choice for [facility]. She will need a CALLY prior to admission and I informed the sister of this. I called [facility] and spoke with Amita and clinical faxed. CM will continue to follow and assist with discharge planning/needs. Mens Locker Room Attendant: Trisha Nandini DCP- Discharge Planning Updated by [email or web address]: Darlene Diaz on 06/26/18 3:[address] PATIENT' SISTER WITH RAPID RESPONSE THIS AM. WAS TRANSFERED TO CVICU WITH RESPIRATORY DISTRESS AND DECREASED RESPONSIVENESS. PATIENT SPOKE WITH ER NURSING STAFF REPORTEDLY ABOUT A[place]IN HOANG AND CONDITIONS IN THE HOME. NO DOCUMENTATION. NO APS REPORTING NOTED. LIKELY APS REPORT MAYBE APPROPRIATE. CM TO FOLLOW UP WITH APS IN THE AM PT' SON WAS TAKEN FROM THE HOME THEY MAY HAVE AN OPEN CASE. DOES NOT APPEAR THAT THIS PATIENT COULD SAFELY BE DISCHARGED TO HOME. SHE REPORTEDLY HAD ASSISTANCE FROM HER SISTER AND MR HOANG. BOTH OF WHOM ARE HOSPITALIZED. DR KELLER VISITED THIS AM AND FELT , MR- MENTAL RETARDATION , IS HER ISSUE NOT CHANGE IN MENTAL STATUS. FELT SHE WAS ADMITTED BECAUSE D/C TO HOME WAS NOT AN OPTION DUE TO SELF CARE AND SAFETY CONCERNS. CM TO FOLLOW. DCP- Discharge Planning Updated by [id number]: Ana Licea on 06/25/18 5:[address] CM met with patient regarding dc needs/plans. ?Patient has mental handicap? PCP: Gordo Pearl. Pharmacy: [facility]. DME: none reported. Emergency contact: Suri Loja, (sister) #[phone]. Austin Hoang #[phone], ("spouse in the eyes of God", but not legally ) and he may be in [facility], "because he got sick before". Living arrangements: Reported per patient, leased apartment @ [address] [facility] (this reported per patient). Patient states she, her sister and Austin Hoang all live together. States Austin does the cooking and her sister takes care of her. Patient states she receives a SSI check of $1000. 00/month, no food stamps or other assistance. States her name is on the apartment lease. States "[facility] took away my son in February or March and wants to get him back". States her son, Adriana Sherwood is 15 y/o. Comments "we need to get well and clean and stuff". Patient states she plans to return to her apartment upon discharge. 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 CM will assist as needed with further dc plans. Ana Licea RN DCPIA - Discharge Planning Initial Assessment Updated by [email or web address]: Trisha Delatorre on 06/27/18 3:14 pm * Is the patient Alert and Oriented? No * PCP [facility] (Dr. Cordoba) * Preadmission Environment Home with Family * ADLs Partial Dependent * List name and contact numbers for known caregivers / representatives who currently or will assist patient after discharge: Kianna León - sister - [phone] * Verbal permission to speak to the caregivers and representatives has been obtained from the patient. Yes * Community resources currently utilized None * Additional services required to return to the preadmission environment? Yes * Can the patient safely return to the preadmission environment? No * Has this patient been hospitalized within the prior 30 days at any hospital? No Coverage Notice Reviewer: [id number] Mary Delatorre Notice Issued Date-Time: 06/27/2018 15:30 Notice Type: Patient Choice Letter Notice Delivered To: Family Member Relationship to Patient: Sister Parts Remover Name: Suri Loja Delivery Method: HAND - Hand Delivered Shanda Days: Prior Verbal Notification: Recipient Understood Notice: Yes Recipient Signature: Yes Med Rec Note Co-signed by Attending: Coverage Notice Comment: ABDOUL for [facility]. [facility]. [facility] DP export: 07/01/18 12:12 p Patient Name: DARIANA SHERWOOD Page [id number] at 1428 All edits/amendments must be made on the electronic document DICTATION DATE: 07/04/181426 SPIN TABLE OPERATOR: MARK 07/04/181426 RPT#: [id number] DC DATE: STATUS: ADM IN [facility] [address] [place] [address] END OF REPORT
--- NOTE | 2018-07-04 14:58 | MORECARE ---
CASE MANAGEMENT DISCHARGE SUMMARY PATIENT: DARIANA SHERWOOD UNIT: [id number] ADM DATE: 06/27/18 AGE: 48 : 70 SEX: F ROOM/BED: D.2236 AUTHOR: MARY,DOC PHYSICIAN: REFERRING PHYSICIAN: DENNY COMBS MD DATE OF SERVICE: 07/04/18 Discharge Plan Patient Name: DARIANA SHERWOOD Facility: [facility]:[place] : 1970 Planned Disposition: Half-Way Facility Anticipated Discharge Date: Discharge Date: Expected LOS: Initial Reviewer: [email or web address] Initial Review Date: 06/27/2018 Generated: 07/04/18 3:58 pm Comments DCP- Discharge Planning Updated by [email or web address]: Trisha Maldonadopatricia on 07/04/18 1:[address] Discharging to a skilled bed at [facility] in [facility], transporting via ambulance. She will go to the [address] [place] [address] [address] the care of Dr. Mosley. Nurse to call report to [phone] to [facility] Ambulance to take her to [address] [facility] in [facility]. IMM explained and signed. Patient agrees with discharge today via ambulance. CM will continue to follow and assist with discharge planning/needs. DCP- Discharge Planning Updated by [email or web address]: Trisha Nandini on 07/04/18 1:[address] Received confirmation from RICCARDO Babin for patient's sister, that her sister is being discharged today. I notifed Kianna Hobsonaft and discharge orders/MAR faxed to her. She will need nonemergent transportation set up. hospital coordinator informed. CM will continue to follow and assist with discharge planning/needs. DCP- Discharge Planning Updated by [email or web address]: Trisha Maldonadopatricia on 07/01/18 12:[address] [facility] approval received. I faxed approval to Wilma and also called her. Wilma states they do not want to take Dariana until her sister is discharged. Her sisters possible discharge will be on Wednesday. They will both have to go via ambulance because [facility] is unable to take the van out of town. CM will continue to follow and assist with discharge planning/needs. DCP- Discharge Planning Updated by [email or web address]: Trisha Delatorre on 07/01/18 11:[address] Wilma Aguilera from [place] in [facility] has interviewed patient and they will accept when she has [place] approval. I called and spoke to Kianna Bush at [facility] and she states she is sending the [place] back now via fax. DCP- Discharge Planning Updated by [id number]: Trisha Delatorre on 06/30/18 11:[address] Kianna Ramirez has spoken to patient and her sister and they have elected to go to [facility] in [place] to be closer to her son. Kianna states patient and her sister in agreement to this. CM will continue to follow and assist with discharge planning/needs. DCP- Discharge Planning Updated by [email or web address]: Trisha Delatorre on 06/29/18 11:[address] [place] [facility] Will continue to follow. DCP- Discharge Planning Updated by [id number]: Trisha Maldonadopatricia on 06/28/18 2:[address] Amita with [facility] called and they have declined admission. Patient's sister would like referral to [facility]. yanci Shaffer for [facility] notified and clinical faxed. CM will continue to follow and assist with discharge planning/needs. DCP- Discharge Planning Updated by [email or web address]: Trisha Delatorre on 06/27/18 2:[address] Patient Name: DARIANA SHERWOOD Admission Status: ER Accout number: [id number] Admission Date: 06-27-2018 : 1970 Admission Diagnosis: Attending: LAURYN, Current LOS: 1 Anticipated DC Date: Planned Disposition: Half-Way Facility Primary Insurance: MEDICARE A & B Discharge Planning Comments: Met with patient to discuss discharge planning. She is unable to answer my questions. She states she lives with her sister in an apartment. She states she doesn't know where her sister is or how she got here. States she has had bad dreams. She later tells her nurse that her sister would like her to go to [facility] for therapy with her. Her sister is currently in the hospital and I met with her to discuss discharge planning. Her sister states she would like them both to go to a rehab facility in [place]. She states she can sign her sister's admission paper work. ABDOUL for [facility] signed. She also signed second choice for [facility]. She will need a CALLY prior to admission and I informed the sister of this. I called [facility] and spoke with Amita and clinical faxed. CM will continue to follow and assist with discharge planning/needs. Incident Manager: Trisha Delatorre DCP- Discharge Planning Updated by [email or web address]: Darlene Gregorios on 06/26/18 3:[address] PATIENT' SISTER WITH RAPID RESPONSE THIS AM. WAS TRANSFERED TO CVICU WITH RESPIRATORY DISTRESS AND DECREASED RESPONSIVENESS. PATIENT SPOKE WITH ER NURSING STAFF REPORTEDLY ABOUT [place] HOANG AND CONDITIONS IN THE HOME. NO DOCUMENTATION. NO APS REPORTING NOTED. LIKELY APS REPORT MAYBE APPROPRIATE. CM TO FOLLOW UP WITH APS IN THE AM PT' SON WAS TAKEN FROM THE HOME THEY MAY HAVE AN OPEN CASE. DOES NOT APPEAR THAT THIS PATIENT COULD SAFELY BE DISCHARGED TO HOME. SHE REPORTEDLY HAD ASSISTANCE FROM HER SISTER AND MR HOANG. BOTH OF WHOM ARE HOSPITALIZED. DR KELLER VISITED THIS AM AND FELT , MR- MENTAL RETARDATION , IS HER ISSUE NOT CHANGE IN MENTAL STATUS. FELT SHE WAS ADMITTED BECAUSE D/C TO HOME WAS NOT AN OPTION DUE TO SELF CARE AND SAFETY CONCERNS. CM TO FOLLOW. DCP- Discharge Planning Updated by [id number]: Ana Licea on 06/25/18 5:[address] CM met with patient regarding dc needs/plans. ?Patient has mental handicap? PCP: Gordo Pearl. Pharmacy: [facility]. DME: none reported. Emergency contact: Suri Loja, (sister) #[phone]. Austin Hoang #[phone], ("spouse in the eyes of God", but not legally ) and he may be in [facility], "because he got sick before". Living arrangements: Reported per patient, leased apartment [address] [facility], (this reported per patient). Patient states she, her sister and Austin Hoang all live together. States Austin does the cooking and her sister takes care of her. Patient states she receives a SSI check of $1000. 00/month, no food stamps or other assistance. States her name is on the apartment lease. States "[facility] took away my son in February or March and wants to get him back". States her son, Adriana Sherwood is 15 y/o. Comments "we need to get well and clean and stuff". Patient states she plans to return to her apartment upon discharge. The EMS report for address for the patient mixing picker tender is [address] [place] [address], phone #[phone]. CM will assist as needed with further dc plans. Ana Licea RN DCPIA - Discharge Planning Initial Assessment Updated by [id number]: Trisha Delatorre on 06/27/18 3:14 pm * Is the patient Alert and Oriented? No * PCP [facility] [place] (Dr. Cordoba) * Preadmission Environment Home with Family * ADLs Partial Dependent * List name and contact numbers for known caregivers / representatives who currently or will assist patient after discharge: Kianna León - sister - [phone] * Verbal permission to speak to the caregivers and representatives has been obtained from the patient. Yes * Community resources currently utilized None * Additional services required to return to the preadmission environment? Yes * Can the patient safely return to the preadmission environment? No * Has this patient been hospitalized within the prior 30 days at any hospital? No Coverage Notice Reviewer: [id number] Mary Delatorre Notice Issued Date-Time: 06/27/2018 15:30 Notice Type: Patient Choice Letter Notice Delivered To: Family Member Relationship to Patient: Sister Line Servicer Name: Suri Loja Delivery Method: HAND - Hand Delivered Shanda Days: Prior Verbal Notification: Recipient Understood Notice: Yes Recipient Signature: Yes Med Rec Note Co-signed by Attending: Coverage Notice Comment: ABDOUL cedeño 1Ivania Wilder 2[facility] Reviewer: [id number] Mary Delatorre Notice Issued Date-Time: 07/04/2018 14:50 Notice Type: IM Discharge Notice Notice Delivered To: Family Member Relationship to Patient: Self Line Servicer Name: Delivery Method: HAND - Hand Delivered Shanda Days: Prior Verbal Notification: Recipient Understood Notice: Yes Recipient Signature: Yes Med Rec Note Co-signed by Attending: Coverage Notice Comment: IMM explained, signed, given, copy placed in MR Last DP export: 07/04/18 1:28 p Patient Name: DARIANA SHERWOOD Page [id number] at 1458 All edits/amendments must be made on the electronic document DICTATION DATE: 07/04/181456 PROCESS CAMERA OPERATOR: MARK 07/04/181456 RPT#: [id number] [place] DATE: STATUS: ADM IN [facility] [address] [place] [address] END OF REPORT
[2018-07-04 16:38] VITALS: BP 134/50
--- NOTE | 2018-07-07 10:48 | MORECARE ---
CASE MANAGEMENT DISCHARGE SUMMARY PATIENT: DARIANA SHERWOOD UNIT: [id number] ADM DATE: 06/27/18 AGE: 48 : 70 SEX: F ROOM/BED: D.2236 AUTHOR: MARY,DOC PHYSICIAN: REFERRING PHYSICIAN: DENNY COMBS MD DATE OF SERVICE: 07/07/18 Discharge Plan Patient Name: DARIANA SHERWOOD Facility: [facility]:[place] : 1970 Planned Disposition: Senior Living Facility Anticipated Discharge Date: Discharge Date: 07/04/2018 Expected LOS: 0 Initial Reviewer: [email or web address] Initial Review Date: 06/27/2018 Generated: 07/07/18 11:48 am Comments DCP- Discharge Planning Updated by [email or web address]: Trisha Delatorre on 07/04/18 1:[address] Discharging to a skilled bed at [facility] in [facility], transporting via ambulance. She will go to the [address] [place] [id number] under the care of Dr. Mosley. Nurse to call report to [phone] to [facility]. Ambulance to take her to [address] [facility] in [facility]. IMM explained and signed. Patient agrees with discharge today via ambulance. CM will continue to follow and assist with discharge planning/needs. DCP- Discharge Planning Updated by [id number]: Trisha Delatorre on 07/04/18 1:[address] Received confirmation from RICCARDO Babin for patient's sister, that her sister is being discharged today. I notifed Kianna Hobsonaft and discharge orders/MAR faxed to her. She will need nonemergent transportation set up. youth coordinator informed. CM will continue to follow and assist with discharge planning/needs. DCP- Discharge Planning Updated by [email or web address]: Trsiha Delatorre on 07/01/18 12:[address] CALLY approval received. I faxed approval to Wilma and also called her. Wilma states they do not want to take Dariana until her sister is discharged. Her sisters possible discharge will be on Wednesday. They will both have to go via ambulance because [facility] is unable to take the van out of town. CM will continue to follow and assist with discharge planning/needs. DCP- Discharge Planning Updated by [id number]: Trisha Delatorre on 07/01/18 11:[address] Wilma Aguilera from [place] in [facility] has interviewed patient and they will accept when she has Idanha approval. I called and spoke to Kianna Bush at [facility] and she states she is sending the Cally back now via fax. DCP- Discharge Planning Updated by [id number]: Trisha Delatorre on 06/30/18 11:[address] Kianna Ramirez has spoken to patient and her sister and they have elected to go to [facility] in [place] to be closer to her son. Kianna states patient and her sister in agreement to this. CM will continue to follow and assist with discharge planning/needs. DCP- Discharge Planning Updated by [email or web address]: Trisha Delatorre on 06/29/18 11:[address] [facility] sent to [facility]. Will continue to follow. DCP- Discharge Planning Updated by [email or web address]: Trisha Delatorre on 06/28/18 2:[address] Amita with [facility] called and they have declined admission. Patient's sister would like referral to [facility]. yanci Shaffer for [facility] notified and clinical faxed. CM will continue to follow and assist with discharge planning/needs. DCP- Discharge Planning Updated by [email or web address]: Trisha Delatorre on 06/27/18 2:[address] Patient Name: DARIANA SHERWOOD Admission Status: ER Accout number: [id number] Admission Date: 06-27-2018 : 1970 Admission Diagnosis: Attending: LAURYN, Current LOS: 1 Anticipated DC Date: Planned Disposition: Senior Living Facility Primary Insurance: MEDICARE A & B Discharge Planning Comments: Met with patient to discuss discharge planning. She is unable to answer my questions. She states she lives with her sister in an apartment. She states she doesn't know where her sister is or how she got here. States she has had bad dreams. She later tells her nurse that her sister would like her to go to [facility] for therapy with her. Her sister is currently in the hospital and I met with her to discuss discharge planning. Her sister states she would like them both to go to a rehab facility in [place]. She states she can sign her sister's admission paper work. ABDOUL for Tina signed. She also signed second choice for [facility]. She will need a CALLY prior to admission and I informed the sister of this. I called [facility] and spoke with Amita and clinical faxed. CM will continue to follow and assist with discharge planning/needs. Cyber Incident Responder: Trisha Delatorre DCP- Discharge Planning Updated by [email or web address]: Darlene Joe on 06/26/18 3:[address] PATIENT' SISTER WITH RAPID RESPONSE THIS AM. WAS TRANSFERED TO [facility] WITH RESPIRATORY DISTRESS AND DECREASED RESPONSIVENESS. PATIENT SPOKE WITH ER NURSING STAFF REPORTEDLY ABOUT AUSTIN HOANG AND CONDITIONS IN THE HOME. NO DOCUMENTATION. NO APS REPORTING NOTED. LIKELY APS REPORT MAYBE APPROPRIATE. CM TO FOLLOW UP WITH APS IN THE AM PT' SON WAS TAKEN FROM THE HOME THEY MAY HAVE AN OPEN CASE. DOES NOT APPEAR THAT THIS PATIENT COULD SAFELY BE DISCHARGED TO HOME. SHE REPORTEDLY HAD ASSISTANCE FROM HER SISTER AND MR HOANG. BOTH OF WHOM ARE HOSPITALIZED. DR KELLER VISITED THIS AM AND FELT , MR- MENTAL RETARDATION , IS HER ISSUE NOT CHANGE IN MENTAL STATUS. FELT SHE WAS ADMITTED BECAUSE D/C TO HOME WAS NOT AN OPTION DUE TO SELF CARE AND SAFETY CONCERNS. CM TO FOLLOW. DCP- Discharge Planning Updated by [id number]: Ana Licea on 06/25/18 5:[address] CM met with patient regarding dc needs/plans. ?Patient has mental handicap? PCP: Gordo Pearl. Pharmacy: [facility]. DME: none reported. Emergency contact: Suri oLja, (sister) #[phone]. Austin Hoang #[phone], ("spouse in the eyes of God", but not legally ) and he may be in [facility], "because he got sick before". Living arrangements: Reported per patient, leased [address] (this reported per patient). Patient states she, her sister and Austin Hoang all live together. States Austin does the cooking and her sister takes care of her. Patient states she receives a SSI check of $1000. 00/month, no food stamps or other assistance. States her name is on the apartment lease. States "[facility] took away my son in February or March and wants to get him back". States her son, Adriana Sherwood is 15 y/o. Comments "we need to get well and clean and stuff". Patient states she plans to return to her apartment upon discharge. The EMS report for address for the patient cone picker is [address] [place] [address], [place] [address], phone #[phone]. CM will assist as needed with further dc plans. Ana Licea RN DCPIA - Discharge Planning Initial Assessment Updated by [email or web address]: Trisha Delatorre on 06/27/18 3:14 pm * Is the patient Alert and Oriented? No * PCP [facility] (Dr. Cord[place]) * Preadmission Environment Home with Family * ADLs Partial Dependent * List name and contact numbers for known caregivers / representatives who currently or will assist patient after discharge: Kianna León - sister - [phone] * Verbal permission to speak to the caregivers and representatives has been obtained from the patient. Yes * Community resources currently utilized None * Additional services required to return to the preadmission environment? Yes * Can the patient safely return to the preadmission environment? No * Has this patient been hospitalized within the prior 30 days at any hospital? No Coverage Notice Reviewer: [id number] Mary Delatorre Notice Issued Date-Time: 06/27/2018 15:30 Notice Type: Patient Choice Letter Notice Delivered To: Family Member Relationship to Patient: Sister Cargo Service Agent Name: Suri Loja Delivery Method: HAND - Hand Delivered Shanda Days: Prior Verbal Notification: Recipient Understood Notice: Yes Recipient Signature: Yes Med Rec Note Co-signed by Attending: Coverage Notice Comment: ABDOUL for 1. Tina 2. Teja [facility] Reviewer: [email or web address] Mary Delatorre Notice Issued Date-Time: 07/04/2018 14:50 Notice Type: IM Discharge Notice Notice Delivered To: Family Member Relationship to Patient: Self Cargo Service Agent Name: Delivery Method: HAND - Hand Delivered Shanda Days: Prior Verbal Notification: Recipient Understood Notice: Yes Recipient Signature: Yes Med Rec Note Co-signed by Attending: Coverage Notice Comment: IMM explained, signed, given, copy placed in MR Last DP export: 07/04/18 1:58 p Patient Name: DARIANA SHERWOOD Page [id number] at 1048 All edits/amendments must be made on the electronic document DICTATION DATE: 07/07/188 BOARD WORKER: MARK 07/07/18 1048 RPT#: [id number] DC DATE:07/04/18 STATUS: DIS IN [facility] [address] [place] [address] END OF REPORT
== END 2018-07-04 19:05 | DRG 71 ==
LOC: D.ER 12:28 → D.EDHOLD 15:44 → D.MS 15:51 → D.SDCHOLD 06-27 17:28 → D.MS 06-27 17:30
PROVIDERS: Family Medicine; Internal Medicine Nephrology; ADMIT Family Medicine
DX: G93.41 Metabolic encephalopathy (principal); I50.22 Chronic systolic (congestive) heart failure; Z68.43 Body mass index [BMI] 50.0-59.9, adult; F31.89 Other bipolar disorder; R41.82 Altered mental status, unspecified; I11.0 Hypertensive heart disease with heart failure; E11.9 Type 2 diabetes mellitus without complications; E66.01 Morbid (severe) obesity due to excess calories; F78 Other intellectual disabilities; F31.9 Bipolar disorder, unspecified